=== PATIENT | male | born 1965 | race Caucasian/White ===

== ENCOUNTER → 2021-05-30 10:50 | Outpatient (CLI) | payer OTHER, SELFPAY ==
[2021-05-30 11:14] LABS: Basophils # 0.1 K/mm3 (0-0.2); Eosinophils # 0.3 K/mm3 (0.0-0.4); Eosinophils % 4.6 % (0.1-12.0); Hematocrit 50.3 % (42.0-52.0); Hemoglobin 16.3 g/dL (14.1-18.0); Lymphocytes # 1.6 K/mm3 (0.7-4.5); Lymphocytes % 26.5 % (10-50); Mean Corpuscular HGB Conc 32.5 g/dL (31.8-35.4); Mean Corpuscular Hemoglobin 31.2 pg (27.0-31.2); Mean Corpuscular Volume 96.1 fl (80-94); Monocytes # 0.3 K/mm3 (0.1-1.0); Monocytes % 5.4 % (1.7-9.3); Neutrophils # 3.7 K/mm3 (1.8-7.8); Neutrophils % 61.4 % (37.0-80.0); Platelet Count 84 K/mm3 (142-424); Red Blood Count 5.24 M/mm3 (4.60-6.20); Red Cell Distribution Width 13.9 % (11.5-17.5); White Blood Count 6.1 K/mm3 (4.8-10.8)
[2021-05-30 13:06] LABS: Chloride 107 mmol/L (98-107); Sodium 138 mmol/L (136-145)
[2021-05-30 13:09] LABS: Alanine Aminotransferase 43 U/L (12-78); Albumin Level 3.9 g/dl (3.5-5.0); Albumin/Globulin Ratio 1.1 (1.1-1.8); Alkaline Phosphatase 117 U/L (38-126); Aspartate Amino Transferase 48 U/L (17-59); Bilirubin,Total 1.1 mg/dl (0.2-1.3); Blood Urea Nitrogen 10 mg/dl (9-20); Carbon Dioxide 27 mmol/L (22.0-30.0); Estimated Glomerular Filt Rate 140 ml/min (>60); GFR (African American) 170 ML/MIN (>60); Globulin 3.5 g/dL (1.3-3.2); Total Protein,Serum 7.4 g/dl (6.3-8.2)
[2021-05-30 13:10] LABS: Anion Gap 8.3 mEq/L (5-15); Potassium 4.3 mmoL/L (3.5-5.1)
[2021-05-30 13:13] LABS: Calcium 9.1 mg/dl (8.4-10.2); Glucose 281 mg/dl (74-100)
== END ==
PROVIDERS: Visit Provider Internal Medicine Medical Oncology
DX: D69.6 Thrombocytopenia, unspecified (principal)
CPT/HCPCS: 36415; 80053; 85025

== ENCOUNTER → 2021-06-13 08:47 | Outpatient (CLI) | payer OTHER, SELFPAY ==
--- NOTE | 2021-06-13 09:00 | CT_ITS ---
FINAL REPORT CLINICAL HISTORY: THROMBOCYTOPENIA FINDINGS: Axial CT images of the chest were obtained with contrast. Coronal reformatted images were also obtained. This study was performed with techniques to keep radiation doses as low as reasonably achievable, (ALARA). Individualized dose reduction techniques using automated exposure control or adjustment of mA and/or KV according to the patient's size were employed. There are severe coronary artery calcifications. There is no evidence of mediastinal or hilar mass or adenopathy.No axillary mass or adenopathy is identified. On lung window images, there is moderate emphysema. There is mild scarring. There is a 6 mm nodule in the right major fissure which may represent an intra fissural lymph node. There is scarring in the lingula.. No localized pulmonary inflammatory process is identified. Limited images of the upper abdomen reveal no mass or localized inflammatory process. IMPRESSION: 6 mm nodule the right major fissure which may represent intra fissural lymph node. Severe coronary artery calcifications. Reviewed, Interpreted and Dictated by Fidel Bazan III, MD Transcribed by Ligia Phelan Authenticated by Fidel Bazan III, MD on 06/13/2021 11:15:21 AM [facility]
--- NOTE | 2021-06-13 09:00 | CT_ITS ---
FINAL REPORT CLINICAL HISTORY: THROMBOCYTOPENIA FINDINGS: CT OF THE ABDOMEN AND PELVIS WITH CONTRAST Axial CT images of the abdomen and pelvis were obtained after the administration of oral and iv contrast. Coronal reformatted images were also obtained and reviewed.This study was performed with techniques to keep radiation doses as low as reasonably achievable (ALARA). Individualized dose reduction techniques using automated exposure control or adjustment of mA and/or kV according to the patient's size were employed. Abdomen: The lung bases are clear. The heart is normal in size. The liver has a lobular contour which likely represents cirrhosis. There is a 10 mm mass in the medial segment of the left hepatic lobe which is nonspecific and may represent a cyst. There is also a probable small cyst in the right liver dome. The gallbladder is present. There is no biliary ductal dilatation. The spleen is enlarged measuring 16 cm in length. No adrenal mass is present. The pancreas has an unremarkable appearance. There are several bilateral renal cysts with the largest on the right measuring 2.4 cm. There are 2 left nonobstructing renal stones measuring up to 5 mm. The aorta is normal in caliber. There are multiple portal and portocaval lymph nodes with the largest portocaval lymph node measuring 3.8 cm transverse which may be reactive. Pelvis: The appendix is normal. The urinary bladder is unremarkable. No inflammatory process is seen. There is no evidence of mass or adenopathy. There is no evidence of bowel obstruction. IMPRESSION: Findings are consistent with cirrhosis and portal hypertension. Portal and portocaval adenopathy. Nonobstructing left renal stones. Reviewed, Interpreted and Dictated by Fidel Bazan III, MD Transcribed by Ligia Phelan Authenticated by Fidel Bazan III, MD on 06/13/2021 11:27:[address] [facility]
== END ==
PROVIDERS: PCP Family Medicine; Visit Provider Internal Medicine Medical Oncology
DX: D69.6 Thrombocytopenia, unspecified (principal)
CPT/HCPCS: 71260; 74177; Q9967

== ENCOUNTER → 2022-03-11 13:07 | Outpatient (CLI) | payer OTHER, SELFPAY ==
[2022-03-11 20:23] LABS: Basophils # 0.1 K/mm3 (0-0.2); Basophils % 1.3 % (0.1-2.0); Eosinophils # 0.3 K/mm3 (0.0-0.4); Eosinophils % 4.3 % (0.1-12.0); Hematocrit 48.2 % (42.0-52.0); Hemoglobin 15.8 g/dL (14.1-18.0); Lymphocytes # 1.9 K/mm3 (0.7-4.5); Lymphocytes % 25.8 % (10-50); Mean Corpuscular HGB Conc 32.8 g/dL (31.8-35.4); Mean Corpuscular Hemoglobin 30.6 pg (27.0-31.2); Mean Corpuscular Volume 93.4 fl (80-94); Mean Platelet Volume 11.7 fl (7.4-10.4); Monocytes # 0.4 K/mm3 (0.1-1.0); Monocytes % 5.8 % (1.7-9.3); Neutrophils # 4.5 K/mm3 (1.8-7.8); Neutrophils % 62.8 % (37.0-80.0); Platelet Count 96 K/mm3 (142-424); Red Blood Count 5.16 M/mm3 (4.60-6.20); Red Cell Distribution Width 14.4 % (11.5-17.5); White Blood Count 7.2 K/mm3 (4.8-10.8)
[2022-03-11 21:14] LABS: Alanine Aminotransferase 31 U/L (12-78); Albumin Level 3.7 g/dl (3.5-5.0); Albumin/Globulin Ratio 1.2 (1.1-1.8); Alkaline Phosphatase 140 U/L (38-126); Anion Gap 16.3 mEq/L (5-15); Aspartate Amino Transferase 38 U/L (17-59); Bilirubin,Total 0.7 mg/dl (0.2-1.3); Blood Urea Nitrogen 17 mg/dl (9-20); Calcium 9.1 mg/dl (8.4-10.2); Carbon Dioxide 25 mmol/L (22.0-30.0); Chloride 104 mmol/L (98-107); Estimated Glomerular Filt Rate 140 ml/min (>60); GFR (African American) 169 ML/MIN (>60); Globulin 3.2 g/dL (1.3-3.2); Glucose 83 mg/dl (74-100); Potassium 4.3 mmoL/L (3.5-5.1); Sodium 141 mmol/L (136-145); Total Protein,Serum 6.9 g/dl (6.3-8.2)
[2022-03-11 21:41] LABS: Prostate Specific Ag Screen 0.9 ng/ml (0.0-4.0); Thyroid Stimulating Hormone 1.92 uIU/mL (0.465-4.68)
== END ==
PROVIDERS: PCP Nurse Practitioner; Visit Provider Nurse Practitioner
DX: R35.0 Frequency of micturition (principal); R31.9 Hematuria, unspecified; Z12.5 Encounter for screening for malignant neoplasm of prostate
CPT/HCPCS: 80053; 84443; 85025; 87086; G0103

== ENCOUNTER → 2022-04-14 15:26 | Outpatient (CLI) | payer OTHER, SELFPAY ==
[2022-04-14 19:48] LABS: Basophils # 0.1 K/mm3 (0-0.2); Basophils % 1.5 % (0.1-2.0); Eosinophils # 0.2 K/mm3 (0.0-0.4); Hematocrit 45.5 % (42.0-52.0); Lymphocytes # 1.3 K/mm3 (0.7-4.5); Lymphocytes % 21.9 % (10-50); Mean Corpuscular HGB Conc 33.1 g/dL (31.8-35.4); Mean Corpuscular Hemoglobin 30.1 pg (27.0-31.2); Mean Platelet Volume 11.2 fl (7.4-10.4); Monocytes # 0.3 K/mm3 (0.1-1.0); Monocytes % 5.2 % (1.7-9.3); Neutrophils # 4.2 K/mm3 (1.8-7.8); Neutrophils % 68.4 % (37.0-80.0); Platelet Count 78 K/mm3 (142-424); Red Cell Distribution Width 14.1 % (11.5-17.5); White Blood Count 6.1 K/mm3 (4.8-10.8)
[2022-04-14 19:51] LABS: Blood Urea Nitrogen 12 mg/dl (9-20); Calcium 9.3 mg/dl (8.4-10.2); Carbon Dioxide 29 mmol/L (22.0-30.0); Chloride 102 mmol/L (98-107); Estimated Glomerular Filt Rate 100 ml/min (>60); GFR (African American) 121 ML/MIN (>60); Glucose 160 mg/dl (74-100); Sodium 141 mmol/L (136-145)
== END ==
PROVIDERS: PCP Nurse Practitioner; Visit Provider Nurse Practitioner
DX: Z01.818 Encounter for other preprocedural examination (principal)
CPT/HCPCS: 80048; 85025

== ENCOUNTER 2024-03-14 08:48 | Emergency (ER) | payer BC, SELFPAY ==
[2024-03-14 08:53] VITALS: BP 156/96; PULSE 54; O2SAT 96
[2024-03-14 09:02] VITALS: BP 156/96; PULSE 77; RESP 14; TEMP 37; O2SAT 96; BMI 31.2
[2024-03-14 09:15] VITALS: BP 134/80; PULSE 61; O2SAT 98
--- NOTE | 2024-03-14 09:27 | PC.NURSE ---
DR NEWMAN AT BEDSIDE
[2024-03-14 09:30] VITALS: BP 144/87; PULSE 54; O2SAT 96
--- NOTE | 2024-03-14 09:32 | XR_ITS ---
PROCEDURE INFORMATION: Exam: XR Right Hip Exam date and time: 03/14/2024 9:42 AM Age: 58 years old Clinical indication: Hip pain; Right hip; Additional info: Right hip/pelvis pain TECHNIQUE: Imaging protocol: Radiologic exam of the right hip. Views: 2 or 3 views hip with pelvis when performed. COMPARISON: CT ABDOMEN PELVIS W CON 06/13/2021 9:23 AM FINDINGS: Bones/joints: No acute fracture or malalignment. No worrisome lytic or blastic lesion. No cortical erosion or periosteal reaction. Mild right hip joint space narrowing and moderate marginal osteophyte formation. Soft tissues: Normal. IMPRESSION: 1. No acute findings. 2. Moderate right hip osteoarthritis.
--- NOTE | 2024-03-14 09:33 | HMH.EDGENADL ---
Discharge Plan Disposition Patient Disposition: Home, Self-Care Prescriptions Prescriptions: New lidocaine 4 % adhesive patch,medicated 1 patch topical DAILY Qty: 5 0RF Rx Instructions: may leave on for up to 12 hrs cyclobenzaprine 10 mg tablet 10 mg PO TID PRN (Reason: muscle spasm) 5 Days Qty: 15 0RF No Action amlodipine 5 mg tablet 5 mg PO DAILY sildenafil 100 mg tablet 100 mg PO DAILY ezetimibe 10 mg tablet 10 mg PO DAILY lisinopril 20 mg tablet 20 mg PO DAILY cholecalciferol (vitamin D3) 50 mcg (2,000 unit) capsule 50 mcg PO DAILY meloxicam 15 mg tablet 15 mg PO DAILY Patient Comments: TAKE 1 TABLET BY MOUTH EVERY DAY Referrals Follow up/Referrals: Jessenia Brandt APRN [Primary Care Provider] - See instructions Activity Restrictions/Add. Instructions Additional Instructions/Restrictions: No evidence of any orthopedic or neurovascular emergency today. Return with any significant or different symptoms. Otherwise follow the primary care doctor. I would recommend that you take Tylenol in addition to the muscle relaxer and topical lidocaine patches. Return with any paralysis high fevers or other concerns. Clinical Impressions Clinical Impression: Sacroiliac inflammation Print Language Print Language: [place] Discharge ED Provider: Denny Pratt General Adult HPI General Chief complaint: PAIN Stated complaint: Pain lower back/in R hip, cant walk Time Seen by Provider: 03/14/24 09:24 Mode of Arrival: Wheelchair Source of Information: Patient Limitations: No Limitations Description of Symptoms (Recalled from ER Triage Doc. by RN): pt c/o severe R hip pain that is sharp and 12/10. pt states it started 2d as lower back pain. pt denies injury. pt states this has happened before but never this severe and it normally subsides within a few days. pt reports the pain is worse when bearing weight. History of Present Illness HPI narrative: Patient is a 58-year-old presenting today with right hip pain. He describes it being localized to the lateral aspect of his sacroiliac region and some in the lateral aspect of his hip as well. He has full range of motion but difficulty with bearing weight. He was able to walk today but with difficulty. He has a history of cirrhosis from unknown causes. He denies any other symptoms which would include bowel or bladder incontinence saddle anesthesia lower extremity paralysis fevers etc. Related Data Home Medications ?Medication ?Instructions ?Recorded ?Confirmed amlodipine 5 mg tablet 5 mg PO DAILY 05/30/21 05/07/22 cholecalciferol (vitamin D3) 50 50 mcg PO DAILY 05/30/21 05/07/22 mcg (2,000 unit) capsule ezetimibe 10 mg tablet 10 mg PO DAILY 05/30/21 05/07/22 lisinopril 20 mg tablet 20 mg PO DAILY 05/30/21 05/07/22 sildenafil 100 mg tablet 100 mg PO DAILY 05/30/21 05/07/22 meloxicam 15 mg tablet 15 mg PO DAILY 04/14/22 05/07/22 Previous Rx's ?Medication ?Instructions ?Recorded cyclobenzaprine 10 mg tablet 10 mg PO TID PRN muscle spasm 5 03/14/24 days #15 tabs lidocaine 4 % topical patch 1 patch topical DAILY #5 ea 03/14/24 Allergies Allergy/AdvReac Type Severity Reaction Status Date / Time No Known Allergies Allergy Verified 03/14/24 09:08 [facility] Disclaimer: The information contained in this section may have been updated after the patient was seen, as this information can be updated by other users. Medical History ASCVD (arteriosclerotic cardiovascular disease) Cirrhosis Heart attack Hyperlipemia Hypertension Portal hypertension Thrombocytopenia Surgical History History of extraction of renal calculus History of heart surgery Family History Other Diabetes Heart attack Hypertension Social History Smoking Status: Current every day smoker alcohol intake: current alcohol intake frequency: a few times a month current occupational status: employed Travel in the last 8 weeks: None Other Medical History Have you received the Pneumonia Vaccine: Yes ROS Obtained: Yes All systems reviewed & no additional complaints except as documented Physical Exam General General appearance: alert and in no apparent distress Respiratory Respiratory exam: Present normal lung sounds bilaterally Cardiovascular Cardiovascular exam: Present regular rate and normal rhythm Back Exam Back 1 view image: 1. Tender to palpation normal motor neurovascular exam distal to this region specifically normal internal and external rotation flexion extension of the hip Neurological Exam Neurological exam: Present alert and oriented X3 Medical Decision Making Medical Records Screening: Per USPSTF and CDC recommendations, given the prevalence of disease in our region, it is our hospital?s policy to screen for HIV and viral Hepatitis for all patients aged 18 and over and those with ongoing risk factors. Bob Inquiry Pt receiving controlled substance: No Vital Signs: 03/14/24 08:53 03/14/24 09:02 03/14/24 09:15 Temperature 98.6 F Temperature Source Oral Pulse Rate 54 L 61 Pulse Rate [Left] 77 Respiratory Rate 14 Blood Pressure 156/96 H 134/80 Blood Pressure [Right Arm] 156/96 H Blood Pressure Mean 106 98 Blood Pressure Mean [Right Arm] 116 Blood Pressure Source [Right Arm] Automatic Cuff Blood Pressure Position [Right Arm] Sitting 02 Sat by Pulse Oximetry 96 96 98 Oxygen Delivery Method Room Air Room Air Room Air 03/14/24 09:30 03/14/24 09:45 Temperature Temperature Source Pulse Rate 54 L 61 Pulse Rate [Left] Respiratory Rate Blood Pressure 144/87 H 125/75 Blood Pressure [Right Arm] Blood Pressure Mean 107 101 Blood Pressure Mean [Right Arm] Blood Pressure Source [Right Arm] Blood Pressure Position [Right Arm] 02 Sat by Pulse Oximetry 96 98 Oxygen Delivery Method Room Air Room Air Orders (Tests/Meds): ED MEDICATIONS Discontinued Medications Generic Name Dose Route Start Last Admin Trade Name Dlq PRN Reason Stop Dose Admin Dexamethasone Sodium Phosphate 10 mg 03/14/24 09:31 03/14/24 09:51 Dexamethasone 4mg/Ml 1ml Vial IM 03/14/24 09:32 10 mg ONCE ONE Administration Ketorolac Tromethamine 30 mg 03/14/24 09:31 03/14/24 09:51 Ketorolac 30mg/Ml Vial IM 03/14/24 09:32 30 mg ONCE ONE Administration Lidocaine 1 each 03/14/24 09:31 03/14/24 09:52 Lidocaine 5% Transdermal Patch TP 03/14/24 09:32 1 each ONCE ONE Administration ORDERS Category Date Time Status Hip XR right minimum 2 views [XR hip RT 2-3V w/pelvis] Exams 03/14/24 09:32 Taken Stat Medical Decision Narrative: 58-year-old above history and physical symptoms with localized tenderness over the sacroiliac region. He has no symptoms consistent with sciatica no significant radiation. Majority of his symptoms are in the small localized region. No midline back pain noted history or physical signs concerning for central compression such as would be associated with cauda equina etc. He has no signs or symptoms of a septic joint. Will get an x-ray of his hip and pelvis but this seems to be primarily associate with the sacroiliac region on his hip itself. I had an extensive discussion with him regarding medications and the risk associate with those. He does have cirrhosis and does have some thrombocytopenia and while theoretically NSAIDs could increase his risk of bleeding I had this discussion with him not something I would want him to be on long-term but I do think at 21 things would make him feel better right now. Also will give him a dose of steroids. He understands the risk associated with taking a dose of NSAIDs in the setting of cirrhosis and thrombocytopenia and we will give him a low-dose of IM medication. Also will place a lidocaine patch. He will be discharged shortly. X-ray of the pelvis and the right hip performed which I personally interpreted which showed no acute bony emergency such as fracture or dislocation the right hip itself shows no advanced degenerative changes in cartilaginous surfaces are well-maintained. This adds to the likelihood that his hip is on the certainly not the cause of his symptoms today. He has no clinical signs or symptoms of septic joint and did not look into this further. Supportive care discussed he was given medications in the ED with some improvement he was sent home with a prescription of Flexeril lidocaine patches and advised to take Tylenol. Critical Care Critical Care Time Critical Care Time: No
[2024-03-14 09:45] VITALS: BP 125/75; PULSE 61; O2SAT 98
[2024-03-14] MEDS: DEXAMETHASONE 4MG/ML 1ML VIAL 10 MG IM (09:51)
[2024-03-14] MEDS: KETOROLAC 30MG/ML VIAL 30 MG IM (09:51)
[2024-03-14] MEDS: LIDOCAINE 5% TRANSDERMAL PATCH 1 EACH TP (09:52)
[2024-03-14 10:08] VITALS: BP 125/75; PULSE 75; RESP 16; TEMP 37
== END 2024-03-14 10:17 | disposition home or self-care (01) ==
PROVIDERS: Emergency Provider Student in an Organized Health Care Education/Training Program; PCP Nurse Practitioner
DX: M46.1 Sacroiliitis, not elsewhere classified (principal); M54.50 Low back pain, unspecified; M25.551 Pain in right hip
CPT/HCPCS: 73502; 96372; 99283; J1100; J1885

== ENCOUNTER 2024-06-24 19:28 | Emergency (ER) | payer BC, SELFPAY ==
[2024-06-24] VITALS (7 sets, daily range): BP systolic 120–150; BP diastolic 84–99; PULSE 64–74; RESP 12–18; TEMP 36.8–37.2; O2SAT 95–98; BMI 30.1
--- NOTE | 2024-06-24 20:04 | ECG_ITS ---
APPROVED REPORT Exam: Resting ECG HR:64 bpm ECG Measurements Heart Rate 64 AXES ME 173 P -6 QRSd 86 QRS 57 QT 383 T 79 QTc 392 Conclusion SINUS RHYTHM NORMAL ECG Electronically signed by : LAURA DUTTON, 06/25/2024 00:15:57
[2024-06-24 20:05] LABS: Basophils % 0.4 % (0.1-2.0); Eosinophils # 0.1 K/mm3 (0.0-0.4); Eosinophils % 0.8 % (0.1-12.0); Hematocrit 43.1 % (42.0-52.0); Lymphocytes % 12.8 % (10-50); Mean Corpuscular HGB Conc 34.8 g/dL (31.8-35.4); Mean Corpuscular Hemoglobin 29.6 pg (27.0-31.2); Monocytes # 0.4 K/mm3 (0.1-1.0); Monocytes % 5.5 % (1.7-9.3); Neutrophils # 6.2 K/mm3 (1.8-7.8); Neutrophils % 80.1 % (37.0-80.0); Red Blood Count 5.07 M/mm3 (4.60-6.20); Red Cell Distribution Width 12.6 % (11.5-17.5); White Blood Count 7.7 K/mm3 (4.8-10.8)
[2024-06-24 20:09] LABS: Lactate Venous 1.3 mmol/L (0.4-2.0); VBG HCO3 19.4 mmol/L (23-30); VBG Oxygen Saturation 86.3 % (50-70); VBG PCO2 34.4 mmol/L (35-51); VBG PH 7.37 mmol/L (7.31-7.41); VBG PO2 50.9 mmol/L (28-40); VBG Total CO2 20.4 mmol/L (23-27)
--- NOTE | 2024-06-24 20:09 | ED_ITS ---
Discharge Plan Disposition Patient Disposition: Home, Self-Care Condition: Good Prescriptions Prescriptions: No Action amlodipine 5 mg tablet 5 mg PO DAILY sildenafil 100 mg tablet 100 mg PO DAILY ezetimibe 10 mg tablet 10 mg PO DAILY cholecalciferol (vitamin D3) 50 mcg (2,000 unit) capsule 50 mcg PO DAILY spironolactone 50 mg tablet 50 mg PO DAILY Patient Comments: TAKE 1 TABLET BY MOUTH EVERY DAY FOR 30 DAYS furosemide 20 mg tablet 20 mg PO DAILY Patient Comments: TAKE 1 TABLET BY MOUTH EVERY DAY FOR 30 DAYS methylprednisolone 4 mg tablets,dose pack See Rx Instructions PO PER PKG DIR Qty: 21 0RF Rx Instructions: PO PER PKG DIR methocarbamol 750 mg tablet See Rx Instructions .ROUTE .COMPLEX Qty: 120 0RF Dose Instruction: TAKE 1 TABLET BY MOUTH FOUR TIMES A DAY Rx Instructions: TAKE 1 TABLET BY MOUTH FOUR TIMES A DAY lidocaine 4 % adhesive patch,medicated 1 patch topical DAILY Qty: 5 0RF Rx Instructions: may leave on for up to 12 hrs Referrals Follow up/Referrals: Jessenia Brandt APRN [Primary Care Provider] - See instructions Activity Restrictions/Add. Instructions Additional Instructions/Restrictions: You were evaluated in the emergency department today and diagnosed with diabetes. Your hemoglobin A1c is 11.8. Your blood glucose here is 442. You also have elevation in your liver enzymes. As we discussed, I recommend stopping taking your ashwagandha. This can be harmful to the liver. Please follow-up very closely with your primary care provider tomorrow morning as scheduled for further evaluation and management of your blood glucose, as we did not start you on a long-term medication today. Modify your diet to reduce sugars and carbohydrates. Return to the emergency department for new or worsening symptoms. Clinical Impressions Clinical Impression: Diabetes Instructions Patient Instructions: DI for Diabetes Type 2 Print Language Print Language: Slovenian Discharge ED Provider: Alberta Dumas General Adult HPI General Chief complaint: Recheck/Abnormal Lab/Rx Stated complaint: Elevated sugar 399 Time Seen by Provider: 06/24/24 19:39 Mode of Arrival: Ambulatory Source of Information: Patient Limitations: No Limitations Description of Symptoms (Recalled from ER Triage Doc. by RN): pt to ED with c/o high blood sugar. Pt reports he has had a feeling for a while that his sugar was high, and decided to check it last night. Pt reports he hasn't been eating but his FS has been 300s-500s since last night. Pt states he has not been dx with diabetes. Pt c/o dizziness History of Present Illness HPI narrative: This patient is a 58-year-old male with a history of cirrhosis, CAD with prior ME, portal hypertension, hyperlipidemia, and hypertension presenting to the emergency department for evaluation with concern for high blood sugar. Patient states that he is not felt well for a very long time, since a heart attack back in 2013. He notes that for the last months, he has had high blood sugar readings, increased thirst, increased urination. He has follow-up with the PCP tomorrow but his blood sugars been in the 300s to 500s and he feels much worse. He has not been eating. He feels lightheaded, especially when he gets up and starts doing a lot of things. No fevers, chest pain, abdominal pain, or other concerns. He denies any history of high blood sugar or diagnosis of diabetes in the past. Related Data Home Medications ?Medication ?Instructions ?Recorded ?Confirmed amlodipine 5 mg tablet 5 mg PO DAILY 05/30/21 03/16/24 cholecalciferol (vitamin D3) 50 50 mcg PO DAILY 05/30/21 03/16/24 mcg (2,000 unit) capsule ezetimibe 10 mg tablet 10 mg PO DAILY 05/30/21 03/16/24 sildenafil 100 mg tablet 100 mg PO DAILY 05/30/21 03/16/24 furosemide 20 mg tablet 20 mg PO DAILY 03/16/24 03/16/24 spironolactone 50 mg tablet 50 mg PO DAILY 03/16/24 03/16/24 Previous Rx's ?Medication ?Instructions ?Recorded lidocaine 4 % topical patch 1 patch topical DAILY #5 ea 03/14/24 methylprednisolone 4 mg tablets in See Rx Instructions PO PER PKG DIR 03/16/24 a dose pack #21 tabs methocarbamol 750 mg tablet See Rx Instructions .Route 04/11/24 .COMPLEX #120 tabs Allergies Allergy/AdvReac Type Severity Reaction Status Date / Time No Known Allergies Allergy Verified 03/16/24 11:08 [facility] Disclaimer: The information contained in this section may have been updated after the patient was seen, as this information can be updated by other users. Medical History Acute right-sided low back pain with sciatica Thrombocytopenia Portal hypertension ASCVD (arteriosclerotic cardiovascular disease) Cirrhosis Hyperlipemia Hypertension Heart attack Surgical History History of extraction of renal calculus History of heart surgery Family History Other Diabetes Heart attack Hypertension Social History Smoking Status: Never smoker alcohol intake: current alcohol intake frequency: a few times a month current occupational status: employed Travel in the last 8 weeks: None Have you lived/traveled outside US in past 30 days?: No Contact w/someone who lives/traveled outside US past 30 days?: No Exposure to someone with infectious disease in past 14 days?: No Do you have a fever (greater than 100.4 F or 38 C)?: No Have you tested positive for COVID-19: No Exposed to someone with COVID-19 in past 14 days?: No Do you have a sore throat?: No Do you have a cough?: No Do you have any weakness?: No Do you have any diarrhea?: No Are you experiencing any unusual bleeding?: No Do you have any muscle aches/pain?: No Do you have any abdominal pain?: No Are you experiencing loss of taste or smell?: No Other Medical History Have you received the Pneumonia Vaccine: Yes ROS Obtained: Yes All systems reviewed & no additional complaints except as documented Physical Exam General General appearance: alert and in no apparent distress Head Head exam: atraumatic and normocephalic Eye Eye exam: Present normal appearance, PERRL and EOMI ENT ENT exam: Present normal exam, normal oropharynx, mucous membranes moist and normal external ear exam Neck Neck exam: Present normal inspection, full ROM and trachea midline; Absent tenderness Chest Chest inspection: Present normal inspection and symmetric chest wall rise; Absent tenderness Respiratory Respiratory exam: Present normal lung sounds bilaterally; Absent respiratory distress, wheezes, stridor or accessory muscle use Cardiovascular Cardiovascular exam: Present regular rate and normal rhythm Abdominal Exam Abdominal exam: Present soft; Absent distention, tenderness or guarding Extremities Exam Extremities exam: Present normal inspection, full ROM and normal capillary refill; Absent tenderness or edema Back Exam Back exam: Present normal inspection and full ROM; Absent tenderness Neurological Exam Neurological exam: Present alert, oriented X3, CN II-XII intact and normal gait; Absent motor sensory deficit Psychiatric Psychiatric exam: Present normal affect and normal mood Skin Skin exam: Present warm and dry Medical Decision Making Medical Records Medical records reviewed: Yes I reviewed the patient's medical records. Screening: Per USPSTF and CDC recommendations, given the prevalence of disease in our region, it is our hospital?s policy to screen for HIV and viral Hepatitis for all patients aged 18 and over and those with ongoing risk factors. Bob Inquiry Pt receiving controlled substance: No Vital Signs: 06/24/24 19:30 06/24/24 20:00 06/24/24 20:30 Temperature 98.2 F Temperature Source Oral Pulse Rate 64 66 Pulse Rate [Left Radial] 74 Respiratory Rate 18 16 Blood Pressure 128/86 120/90 Blood Pressure [Right Arm] 141/99 H Blood Pressure Mean [Right Arm] 113 Blood Pressure Source [Right Arm] Automatic Cuff Blood Pressure Position Blood Pressure Position [Right Arm] Sitting 02 Sat by Pulse Oximetry 96 96 97 Oxygen Delivery Method Room Air 06/24/24 21:15 06/24/24 21:52 06/24/24 22:00 Temperature Temperature Source Pulse Rate 64 64 66 Pulse Rate [Left Radial] Respiratory Rate 12 Blood Pressure 148/88 H 150/84 H 150/95 H Blood Pressure [Right Arm] Blood Pressure Mean [Right Arm] Blood Pressure Source [Right Arm] Blood Pressure Position Blood Pressure Position [Right Arm] 02 Sat by Pulse Oximetry 96 96 95 Oxygen Delivery Method 06/24/24 22:09 Temperature 98.9 F Temperature Source Oral Pulse Rate 66 Pulse Rate [Left Radial] Respiratory Rate 16 Blood Pressure 150/95 H Blood Pressure [Right Arm] Blood Pressure Mean [Right Arm] Blood Pressure Source [Right Arm] Blood Pressure Position Supine Blood Pressure Position [Right Arm] 02 Sat by Pulse Oximetry Oxygen Delivery Method Room Air Lab Data Lab results reviewed: Yes I reviewed the patient's lab results. Lab Results 06/24/24 19:42: WBC 7.7, RBC 5.07, Hgb 15.0, Hct 43.1, MCV 85.0, MCH 29.6, MCHC 34.8, RDW 12.6, Plt Count 50 L, MPV 12.0 H, Neut % (Auto) 80.1 H, Lymph % (Auto) 12.8, [place] % (Auto) 5.5, Eos % (Auto) 0.8, Baso % (Auto) 0.4, Neut # (Auto) 6.2, Lymph # (Auto) 1.0, [place] # (Auto) 0.4, Eos # (Auto) 0.1, Baso # (Auto) 0.0, PT 10.4, INR 0.94, Sodium 128 L, Potassium 5.0, Chloride 100, Carbon Dioxide 20 L, Anion Gap 13.0, BUN 30 H, Creatinine 1.00, Estimated Creat Clear 110, Estimated GFR 77, Est GFR ( Amer) 93, Glucose 442 H*, Hemoglobin A1c 11.8 H, Calcium 9.2, Phosphorus 3.5, Magnesium 1.8, Total Bilirubin 1.1, AST 81 H, ALT 124 H, Alkaline Phosphatase 142 H, Troponin I < 0.01, Total Protein 7.1, Albumin 4.1, Globulin 3.0, Albumin/Globulin Ratio 1.4, Acetone Level None detected, HCV Ab JOAO w/Rflx PCR Qn Negative, HIV Ag/Ab Combo Qual Negative 06/24/24 19:57: VBG pH 7.37, VBG pCO2 34.4 L, VBG pO2 50.9 H, VBG HCO3 19.4 L, V BG Total CO2 20.4 L, VBG O2 Saturation 86.3 H, VBG Base Excess -6.0 L, VBG Lactic Acid 1.3 06/24/24 20:20: Urine Color Yellow, Urine Appearance Clear, Urine pH 6.0, Ur Specific [place] 1.010, Urine Protein Negative, Urine Glucose (UA) 3+, Urine Ketones Negative, Urine Blood Trace-i, Urine Nitrate Negative, Urine Bilirubin Negative, Urine Urobilinogen 0.2, Ur Leukocyte Esterase Negative, Urine RBC 3-5, Urine WBC None, Ur Squamous Epith Cells Occasional, Urine Bacteria None 06/24/24 19:42 06/24/24 19:42 Orders (Tests/Meds): ED MEDICATIONS Discontinued Medications Generic Name Dose Route Start Last Admin Trade Name Freq PRN Reason Stop Dose Admin Lactated Ringer's 1,000 mls @ 999 mls/hr 06/24/24 20:34 06/24/24 20:39 Lactated Ringer's 1000 Ml Bag IV 06/24/24 21:34 999 mls/hr .Q1H1M ONE Administration Insulin Human Lispro 5 unit 06/24/24 20:39 06/24/24 20:56 Humalog 100 Units/Ml 10ml Vial (Ssi) SUBCUT 06/24/24 20:40 5 unit ONCE ONE Administration ORDERS Category Date Time Status Acetone, Serum (Rapid) Stat Lab 06/24/24 19:42 Completed Complete Blood Count Auto Diff Stat Lab 06/24/24 19:42 Completed Comprehensive Metabolic Panel Stat Lab 06/24/24 19:42 Completed HIV Combo Stat Lab 06/24/24 19:42 Completed Hemoglobin A1C Stat Lab 06/24/24 19:42 Completed Hepatitis C Ab Qual. W/ RFX Stat Lab 06/24/24 19:42 Completed INR [Prothrombin Time INR] Stat Lab 06/24/24 19:42 Completed MAG [Magnesium] Stat Lab 06/24/24 19:42 Completed PHOS [Phosphorous] Stat Lab 06/24/24 19:42 Completed Trop I [Troponin I] Stat Lab 06/24/24 19:42 Completed UA [Urinalysis and Microscopic] Stat Lab 06/24/24 20:20 Completed VBG [Venous Blood Gas] Stat RT 06/24/24 19:57 Completed ECG Data Tracing #1: I reviewed this ECG and interpreted as documented below: Normal sinus rhythm with a ventricular of [address] changes concerning for STEMI. Normal axis and intervals. ECG initial impression date: 06/24/24 ECG initial impression time: 20:06 Medical Decision Narrative: In summary, this patient is a 58-year-old male presenting to the Emergency Department for evaluation of high blood sugar, polydipsia, polyuria. Differential diagnoses considered include but are not limited to diabetes, DKA, HHS. Ruling out the most morbid conditions drove assessment. It should be noted patient's history includes obesity, cirrhosis which are not at goal therapy. This complicates all aspects of care by increasing patient's risk for morbidity. On exam, the patient is sitting upright in no acute distress. Vitals are reassuring on cardiac telemetry. Workup included CBC, CMP, VBG, acetone, A1c, urinalysis. EKG was obtained which is reassuring. Patient has hyperglycemia with elevated A1c at 11.8% on lab evaluation. He also has transaminitis. He recently started taking ashwagandha for health supplement, I advised he stop taking this and follow-up with his primary care provider as it could be potentially harmful to his liver. He has mild hyponatremia which corrects with his glucose. Mildly elevated BUN. Urine demonstrates glucosuria. Overall based on labs, no concern for DKA, HHS, or other acute complication of uncontrolled diabetes I gave the patient 5 units of subcutaneous insulin here, which he tolerated well with some improvement in his blood glucose. Also given bolus of IV fluids. I considered going ahead and starting him on metformin, however he is at risk for developing lactic acidosis given his transaminitis. He has PCP follow-up in the morning, so I feel right now he is stable for discharge with close follow-up with his PCP to decide what medication would be best for him based on his medical history. I gave him instructions for dietary changes, monitoring his blood glucose, and strict return precautions. He was discharged after all questions were answered. Critical Care Critical Care Time Critical Care Time: No
[2024-06-24 20:10] LABS: Platelet Count 50 K/mm3 (142-424)
[2024-06-24 20:11] LABS: Acetone, Serum (Rapid) None Detected (None Detect)
[2024-06-24 20:21] LABS: Alanine Aminotransferase 124 U/L (12-78); Albumin Level 4.1 g/dl (3.5-5.0); Albumin/Globulin Ratio 1.4 (1.1-1.8); Alkaline Phosphatase 142 U/L (38-126); Aspartate Amino Transferase 81 U/L (17-59); Bilirubin,Total 1.1 mg/dl (0.2-1.3); Blood Urea Nitrogen 30 mg/dl (9-20); Calcium 9.2 mg/dl (8.4-10.2); Carbon Dioxide 20 mmol/L (22.0-30.0); Chloride 100 mmol/L (98-107); Creatinine Clearance Estimated 110 mL/min (50-200); Estimated Glomerular Filt Rate 77 ml/min (>60); GFR (African American) 93 ML/MIN (>60); Magnesium 1.8 mg/dl (1.6-2.3); Phosphorous 3.5 mg/dl (2.5-4.5); Sodium 128 mmol/L (136-145); Total Protein,Serum 7.1 g/dl (6.3-8.2)
[2024-06-24 20:22] LABS: INR 0.94 (0.9-1.1); Prothrombin Time 10.4 seconds (9.2-12.1)
[2024-06-24 20:23] LABS: Glucose 442 mg/dl (74-100)
[2024-06-24 20:25] LABS: Appearance,Urine CLEAR (Clear); Bilirubin,Urine Negative (Negative); Blood, Urine TRACE-I (Negative); Color,Urine YELLOW (Yellow); Glucose,Urine (UA) 3+ (Negative); Ketones,Urine Negative (Negative); Leukocyte Esterase,Urine Negative (Negative); Microscopic, Urine URINE MICROSCOPIC (MICROSCOPIC); Nitrate,Urine Negative (Negative); Protein,Urine Negative (Negative); Urobilinogen,Urine 0.2 EU/dl (0.2)
--- NOTE | 2024-06-24 20:30 | PC.NURSE ---
rounded on pt. UA sent to lab. pt voices no needs. call light in reach
[2024-06-24 20:33] LABS: Troponin I < 0.01 ng/ml (0.00-0.034)
[2024-06-24 20:36] LABS: Hemoglobin A1C 11.8 % (4.0-6.0)
[2024-06-24 20:37] LABS: Squamous Epithelial Cell,Urine Occasional #/hpf (0-5)
[2024-06-24] MEDS: LACTATED RINGERS 1000ML 1,000 ML 999 ML IV (20:39)
[2024-06-24 20:56] LABS: HIV Combo NEGATIVE (Negative)
[2024-06-24] MEDS: humaLOG 100 UNITS/ML 10ML VIAL (SSI) 5 UNIT SUBCUT (20:56)
[2024-06-24 21:01] LABS: Hepatitis C Ab Qual. W/ RFX NEGATIVE (Negative)
--- NOTE | 2024-06-24 21:53 | PC.NURSE ---
rounded on pt at this time. pt updated on POC. Pt voices no needs. call light in reach. family at bedside.
--- NOTE | 2024-06-24 22:11 | PC.NURSE ---
IV removed. Catheter tip intact. Bleeding controlled.
== END 2024-06-24 22:12 | disposition home or self-care (01) ==
PROVIDERS: Emergency Provider Emergency Medicine; PCP Nurse Practitioner
DX: E11.65 Type 2 diabetes mellitus with hyperglycemia (principal); R42 Dizziness and giddiness; R35.0 Frequency of micturition; R63.1 Polydipsia; R63.8 Other symptoms and signs concerning food and fluid intake
CPT/HCPCS: 80053; 81001; 82009; 82803; 83036; 83735; 84100; 84484; 85025; 85610; 86803; 87389; 93005; 96360; 96361; 96372; 99284; J7120

== ENCOUNTER 2024-07-07 16:14 | Outpatient (CLI) | payer BC, SELFPAY ==
[2024-07-07 18:59] LABS: Creatinine,Urine Random 89 mg/dL (Not Estab.); Hemoglobin A1C 11.7 % (4.0-6.0); Microalbumin < 6.000 mg/L (0-16.7)
[2024-07-07 20:03] LABS: Alanine Aminotransferase 90 U/L (12-78); Albumin Level 3.7 g/dl (3.5-5.0); Albumin/Globulin Ratio 1.5 (1.1-1.8); Alkaline Phosphatase 96 U/L (38-126); Anion Gap 14.2 mEq/L (5-15); Aspartate Amino Transferase 53 U/L (17-59); Bilirubin,Total 0.7 mg/dl (0.2-1.3); Blood Urea Nitrogen 24 mg/dl (9-20); Carbon Dioxide 25 mmol/L (22.0-30.0); Chloride 101 mmol/L (98-107); Chol/HDL Ratio 2.6 (1-3.5); Cholesterol 135 mg/dl (140-200); Estimated Glomerular Filt Rate 87 ml/min (>60); GFR (African American) 105 ML/MIN (>60); Globulin 2.5 g/dL (1.3-3.2); Glucose 187 mg/dl (74-100); HDL Cholesterol 52 mg/dl (40-60); Potassium 4.2 mmoL/L (3.5-5.1); Sodium 136 mmol/L (136-145); Total Protein,Serum 6.2 g/dl (6.3-8.2); Triglycerides 201 mg/dl (30-150); VLDL Cholesterol 40 mg/dL (0-40)
[2024-07-07 20:21] LABS: Direct LDL Cholesterol 45.89 mg/dL (100-129)
[2024-07-07 20:44] LABS: Prostate Specific Ag Screen 0.4 ng/ml (0.0-4.0); Thyroid Stimulating Hormone 1.94 uIU/mL (0.465-4.68)
[2024-07-07 21:03] LABS: Vitamin B12 678 pg/mL (239-931)
== END 2024-07-07 23:59 | disposition home or self-care (01) ==
LOC: LAB.DROPOF 07-08 09:48
PROVIDERS: PCP Nurse Practitioner; Visit Provider Nurse Practitioner
DX: E11.9 Type 2 diabetes mellitus without complications (principal); I25.10 Atherosclerotic heart disease of native coronary artery without angina pectoris; K74.60 Unspecified cirrhosis of liver; Z12.5 Encounter for screening for malignant neoplasm of prostate
CPT/HCPCS: 80053; 80061; 82043; 82570; 82607; 83036; 84443; G0103

== ENCOUNTER 2024-08-01 08:45 | Outpatient (CLI) | payer BC, SELFPAY ==
[2024-08-01 20:41] LABS: Albumin Level 4.2 g/dl (3.5-5.0); Chloride 105 mmol/L (98-107); Potassium 4.6 mmoL/L (3.5-5.1); Sodium 136 mmol/L (136-145)
[2024-08-01 20:43] LABS: Blood Urea Nitrogen 17 mg/dl (9-20); Estimated Glomerular Filt Rate 100 ml/min (>60); GFR (African American) 121 ML/MIN (>60)
[2024-08-01 20:44] LABS: Alanine Aminotransferase 77 U/L (12-78); Albumin/Globulin Ratio 1.4 (1.1-1.8); Alkaline Phosphatase 93 U/L (38-126); Anion Gap 8.6 mEq/L (5-15); Aspartate Amino Transferase 60 U/L (17-59); Bilirubin,Total 0.9 mg/dl (0.2-1.3); Calcium 9.3 mg/dl (8.4-10.2); Carbon Dioxide 27 mmol/L (22.0-30.0); Globulin 2.9 g/dL (1.3-3.2); Glucose 123 mg/dl (74-100); Total Protein,Serum 7.1 g/dl (6.3-8.2)
== END 2024-08-01 23:59 | disposition home or self-care (01) ==
LOC: LAB.DROPOF 08-02 12:07
PROVIDERS: PCP Nurse Practitioner; Visit Provider Nurse Practitioner
DX: E11.9 Type 2 diabetes mellitus without complications (principal); Z79.4 Long term (current) use of insulin
CPT/HCPCS: 80053; 83036

== ENCOUNTER 2024-08-15 08:58 | Outpatient (CLI) | payer BC, SELFPAY ==
[2024-08-15 22:50] LABS: Albumin Level 4.2 g/dl (3.5-5.0); Chloride 107 mmol/L (98-107); Potassium 4.8 mmoL/L (3.5-5.1); Sodium 137 mmol/L (136-145)
[2024-08-15 22:53] LABS: Alanine Aminotransferase 53 U/L (12-78); Albumin/Globulin Ratio 1.4 (1.1-1.8); Alkaline Phosphatase 95 U/L (38-126); Anion Gap 3.8 mEq/L (5-15); Aspartate Amino Transferase 50 U/L (17-59); Bilirubin,Total 0.9 mg/dl (0.2-1.3); Blood Urea Nitrogen 17 mg/dl (9-20); Calcium 9.5 mg/dl (8.4-10.2); Carbon Dioxide 31 mmol/L (22.0-30.0); Estimated Glomerular Filt Rate 87 ml/min (>60); GFR (African American) 105 ML/MIN (>60); Globulin 3.1 g/dL (1.3-3.2); Glucose 122 mg/dl (74-100); Total Protein,Serum 7.3 g/dl (6.3-8.2)
== END 2024-08-15 23:59 | disposition home or self-care (01) ==
LOC: LAB.DROPOF 08-16 12:44
PROVIDERS: PCP Nurse Practitioner; Visit Provider Nurse Practitioner
DX: E11.9 Type 2 diabetes mellitus without complications (principal)
CPT/HCPCS: 80053

== ENCOUNTER 2024-11-14 10:32 | Outpatient (CLI) | payer BC, SELFPAY ==
[2024-11-14 18:50] LABS: Albumin Level 4.2 g/dl (3.5-5.0); Chloride 102 mmol/L (98-107); Potassium 4.6 mmoL/L (3.5-5.1); Sodium 136 mmol/L (136-145)
[2024-11-14 18:53] LABS: Alanine Aminotransferase 49 U/L (12-78); Albumin/Globulin Ratio 1.1 (1.1-1.8); Alkaline Phosphatase 78 U/L (38-126); Anion Gap 15.6 mEq/L (5-15); Aspartate Amino Transferase 57 U/L (17-59); Bilirubin,Total 0.7 mg/dl (0.2-1.3); Blood Urea Nitrogen 18 mg/dl (9-20); Calcium 9.4 mg/dl (8.4-10.2); Carbon Dioxide 23 mmol/L (22.0-30.0); Cholesterol 133 mg/dl (140-200); Estimated Glomerular Filt Rate 87 ml/min (>60); GFR (African American) 105 ML/MIN (>60); Globulin 3.7 g/dL (1.3-3.2); Glucose 109 mg/dl (74-100); Total Protein,Serum 7.9 g/dl (6.3-8.2); Triglycerides 197 mg/dl (30-150); VLDL Cholesterol 39 mg/dL (0-40)
[2024-11-14 18:54] LABS: Chol/HDL Ratio 3.1 (1-3.5); HDL Cholesterol 43 mg/dl (40-60)
[2024-11-14 19:02] LABS: Hemoglobin A1C 7.2 % (4.0-6.0)
[2024-11-14 19:05] LABS: Direct LDL Cholesterol 47.43 mg/dL (100-129)
--- OUTSIDE RECORDS SUMMARY | 2024-11-16 10:45 | XMS_ITS | Clinical Summary ---
Author Organization [facility] Address [address] [place] [address] Phone Care Team Providers Care Graining Operator Name Role Phone Rene Salinas Primary Care Provider [phone] Allergies No known active allergies Medications Cholecalciferol , Vitamin D3, 2,000 unit Oral Capsule Take by mouth daily. Active aspirin 81 mg Oral Capsule Take 81 mg by mouth daily. Active methocarbamoL (ROBAXIN) 750 mg Oral Tablet 024 Active fUROsemide (LASIX) 20 mg Oral Tablet Take 20 mg by mouth daily. for 30 days Active ezetimibe (ZETIA) 10 mg Oral TabletIndicatio ns:Pure hypercholestero lemia,ASHD (arteriosclerot ic heart disease),Essent ial hypertension TAKE 1 TABLET BY MOUTH EVERY DAY 90 Tablet 3 024 Active spironolactone (ALDACTONE) 50 mg Oral Tablet Take 1 Tablet by mouth daily. 024 Active cyclobenzaprine (FLEXERIL) 10 mg Oral Tablet TAKE 1 TABLET ORALLY THREE TIMES A DAY NEEDED FOR MUSCLE SPASM FOR 5 DAYS Active REPATHA SYRINGE 140 mg/mL SubQ SyringeIndicati ons:Pure hypercholestero lemia,Myalgia due to statin INJECT 1 ML SUBCUTANEOUSLY DIRECTED EVERY 14 DAYS. 6 Each 1 025 Active amLODIPine (NORVASC) 5 mg Oral TabletIndicatio ns:Essential hypertension,Pu re hypercholestero lemia,ASHD (arteriosclerot ic heart disease) Take 1 Tablet by mouth daily. 90 Tablet 2 025 Active sildenafiL (VIAGRA) 100 mg Oral Tablet TAKE 1 TABLET BY MOUTH EVERY DAY NEEDED FOR ERECTILE DYSFUNCTION 6 Tablet 8 025 Active sildenafiL (VIAGRA) 100 mg Oral Tablet TAKE 1 TABLET BY MOUTH EVERY DAY NEEDED FOR ERECTILE DYSFUNCTION 6 Tablet 8 024 2024 Discontinued Active Problems Problem Noted Date Diagnosed Date ASHD (arteriosclerotic heart disease) 04/20/2014 Hyperlipidemia 04/20/2014 NSTEMI (non-ST elevated myocardial infarction) 1 06/18/2013 Hypertension 04/18/2014 Tobacco abuse 04/18/2014 Encounters Date Type Department Care Team Description 11/09/2024 Refill [facility] [address] [place] [address] Travis Lopez MD Medication Refill 11/09/2024 Refill [facility] [address] [address] Travis Lopez MD Medication Refill 11/06/2024 Refill [facility] [address] [address] Travis Lopez MD Medication Refill 11/06/2024 [address]ill [facility] [address] Travis Lopez MD Medication Refill 2024 Refill [facility] [address] Travis Lopez MD Medication Refill 09/01/2024 Refill [facility] [address] Kirstie Padilla APRN Medication Refill 09/01/2024 Refill [facility] [address] [address] Travis Lopez MD Medication Refill 08/17/2024 Refill [facility] [address] [address] Travis Lopez MD Medication Refill from Last 3 Months Immunizations Immunization Administration Dates Next Due Influenza Seasonal Injectable PF 04/19/2014 Pneumococcal Polysaccharide 23 Valent 04/19/2014 Surgical History Surgery Date Site/Laterality Comments CARDIAC CATHETERIZATION 03/25/2014 THERESA to LAD and ramus, EF 55% HAND SURGERY 05/25/1997 - 05/24/1998 right hand finger reattachment COLONOSCOPY UPPER GASTROINTESTINAL ENDOSCOPY ROTATOR CUFF REPAIR 05/28/2022 Shoulder/Left LEFT SHOULDER ARTHROSCOPY, ROTATOR CUFF REPAIR, ACROMIOCLAVICULAR DEBRIDEMENT, BICEPS TENODESIS, SUBACROMIAL DECOMPRESSION; Surgeon: Faisal Dickinson MD; Location: [facility]; Service: Orthopedics Medical devices from this surgery are in the Medical Devices section. Medical History Medical History Date Comments Hypertension ECHO 04/2014- LV EF 50-55% with mild LV dilatation Atrial fibrillation (HCC) briefl y noted on admit, no recurrence Non compliance w medication regimen Kidney calculi 1997 ASHD (arteriosclerotic heart disease) NUC 10/2014 MET 11.4 EF 45 Normal left ventricular perfusion study. There is no exercise induced ischemia. NSTEMI (non-ST elevated myoc ardial infarction) (HCC) Hyperlipidemia COPD (chronic obstructive pu lmonary disease) (HCC) Cirrhosis (HCC) GI Dr. [facility] in [place], [place]. Thrombocytopenia Family History Medical History Relation Name Comments Heart Disease Father Anesth Problems Neg Hx Relation Name Status Comments Father Mother Social History Tobacco Use Types Packs/Day Years Used Date Smoking Tobacco: Every Day Cigarettes 1 37.5 Started: 05/02/1987 Smokeless Tobacco: Former Chew Quit: 05/06/1989 Tobacco Cessation:Ready to Q uit: Not Asked; Counseling Given: Not Answered Alcohol Use Standard Drinks/Week Comments Not Currently 5 (1 standard drink = 0.6 oz pur e alcohol) Sex and Gender Information Value Date Recorded Sex Assigned at Not on file Legal Sex Male 5:34 AM EDT Gender Identity Not on file Sexual Orientation Not on file Obstetrics History Last Filed Vital Signs Vital Sign Reading Time Taken Comments Blood Pressure 124/80 05/10/2024 7:56 AM EST Pulse 67 05/10/2024 7:56 AM EST Temperature 36.8 C (98.2 F) 03/17/2024 10:00 AM EDT Respiratory Rate 16 03/17/2024 1:45 PM EDT Oxygen Saturation 97% 05/10/2024 7:56 AM EST Inhaled Oxygen Concentration - - Weight 96 kg (211 lb 9.6 oz) 05/10/2024 7:56 AM EST Height 177.8 cm (5' 10 ) 05/10/2024 7:56 AM EST Body Mass Index 30.36 05/10/2024 7:56 AM EST Plan of Treatment Upcoming Encounters Date Type Department Care Team (Late st Contact Info) Description 01/13/2025 9:30 AM EDT Office Visit [facility] [address] [place] [id number] Travis Lopez MD [address] [place] [address] Health Maintenance Due Date Last Done Comments Annual Wellness Exam 1969 DTaP/TDaP/Td (1 - Tdap) 1985 Cologuard 10/06/2011 Colon Cancer Screening 10/06/2011 Colonoscopy 10/06/2011 FIT 10/06/2011 Sigmoidoscopy 10/06/2011 Virtual Colonography 10/06/2011 Pneumococcal Vaccine 50+ (2 of 2 - PCV) 04/19/2015 04/19/2014 Zoster (1 of 2) 2016 COVID-19 Vaccine ( - season) 2024 Influenza Vaccine (Season Ended) 2025 04/19/2014 Low Dose Lung Cancer Screening 04/15/2025 04/15/2024 Hepatitis B Vaccine Completed 04/15/2024, 01/15/2024, 09/19/2022, Additional history exists Meningococcal B Vaccine Aged Out No l onger eligible based on patient's age to complete this topic Goals Goal Patient Goal Type Associated Problems Recent Progress Patient-Stated? Author Blood Pressure < 140/90 Blood Pressure 124/80(2023 7:56 AM EST) No Laura Frost Maintain a healthy diet, exercise regularly and maintain an ideal body weight General No Laura Frost Stay Tobacco Free Lifestyle No Laura Frost Medical Devices Implanted Type Area Ldr Nurse Device Identifier Shelf Expiration Date Model / Serial / Lot Stent Xience Xpedition Drug Eluting 3.0 X 33 - [id number] Implanted:Qty : 1 on 04/18/2014 by Travis Lopez MD at ED FRUIT PICKER MACHINE OPERATOR Explanted:at ED FRUIT PICKER MACHINE OPERATOR (Quantity not on file) Stent-X peditio n [facility]:VASC DEV [id number] 3 / / [id number] Stent Xience Xpedition Drug Eluting 4.0 X 33 - [id number] Implanted:Qty : 1 on 04/18/2014 by Travis Lopez MD at ED FRUIT PICKER MACHINE OPERATOR Explanted:at ED FRUIT PICKER MACHINE OPERATOR (Quantity not on file) Stent-X peditio n N/A: LAD [facility]:VASC DEV [id number] 3 / / [id number] [place] Sut Swivelk C 4.75x19.1mm [facility] - [id number] Implanted:Qty : 1 on 05/28/2022 by Faisal Dickinson MD at [facility] Left: Shoulder ARTHREX [id number] 11/21/2025 [id number] C / / [id number] Insurance ANTHEM PPO GABRIEL PPO Advance Directives For more information, please contact: [phone] * Full Code (Latest Code Status on File) Date Activated Date Inactivated Comments 04/17/2014 8:42 PM 04/20/2014 3:19 PM Care Teams Graining Operator Relationship Specialty Start Date End Date Rene Salinas [address] [facility] [address] [place] [address] PCP - General Family Medicine 11/08/14
--- OUTSIDE RECORDS SUMMARY | 2024-11-16 10:45 | XMS_ITS | Encounter Summary ---
Author Organization [facility] [place] [address] Care Team Providers Care Phone Engineer Name Role Phone Rene Salinas Primary Care Provider [phone] Reason for Visit * Reason Comments Medication Refill Encounter Details Date Type Department Care Team (Late st Contact Info) Description 2024 Refill [facility] [address] [place] [address] Travis Lopez MD [address] [place] [address] Medication Refill Social History Tobacco Use Types Packs/Day Years Used Date Smoking Tobacco: Every Day Cigarettes 1 37.5 Started: 05/02/1987 Smokeless Tobacco: Former Chew Quit: 05/06/1989 Alcohol Use Standard Drinks/Week Comments Not Currently 5 (1 standard drink = 0.6 oz pur e alcohol) Sex and Gender Information Value Date Recorded Sex Assigned at Not on file Legal Sex Male 5:34 AM EDT Gender Identity Not on file Sexual Orientation Not on file documented as of this encounter Functional Status * Is the person deaf or does he/she have serious difficulty hearing? Answer Date of Assessment Author No 04/20/2014 10:43 AM Lilian Hernández RN * Is the person blind or does he/she have serious difficulty seeing even when wearing glasses? Answer Date of Assessment Author No 04/20/2014 10:43 AM Lilian Hernández RN * Does this person have serious difficulty walking or climbing stairs? Answer Date of Assessment Author No 04/20/2014 10:43 AM Lilian Hernández RN * Does this person have difficulty dressing or bathing? Answer Date of Assessment Author No 04/20/2014 10:43 AM Lilian Hernández RN * Because of a physical, mental or emotional condition, does this person have difficulty doing errands alone such as visiting a doctor's office or shopping? Answer Date of Assessment Author No 04/20/2014 10:43 AM Lilian Hernández RN documented as of this encounter Mental Status * Because of a physical, mental or emotional condition, does this person have serious difficulty concentrating, remembering or making decisions? Answer Entry Date Author No 04/20/2014 10:43 AM Lilian Hernández RN documented in this encounter Miscellaneous Notes * Telephone Encounter - Shanta Hill CPhT - 10/06/2024 6:56 AM EDT Lisinopril-Hctz 20-25 Refill request deferred to the office: Medication discontinued or inactive on the medication list documented in this encounter Plan of Treatment Upcoming Encounters Date Type Department Care Team (Late st Contact Info) Description 01/13/2025 9:30 AM EDT [place] [address] Travis Lopez MD [address] [place] [address] documented as of this encounter Goals Goal Patient Goal Type Associated Problems Recent Progress Patient-Stated? Author Blood Pressure < 140/90 Blood Pressure 124/80(2023 7:56 AM EST) Laura Oliva Maintain a healthy diet, exercise regularly and maintain an ideal body weight General No Laura Frost Stay Tobacco Free Lifestyle Laura Oliva documented as of this encounter Visit Diagnoses Diagnosis Essential hypertension Unspecified essential hypertension documented in this encounter Care Teams Phone Engineer Relationship Specialty Start Date End Date Rene Salinas [address] [place] [address] PCP - General Family Medicine 11/08/14 documented as of this encounter
--- OUTSIDE RECORDS SUMMARY | 2024-11-16 10:45 | XMS_ITS | Data Portability ---
Author Organization MD - 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 MELD 3.0 score 8. Plan for referral for transplant evaluation with MELD >15. -EV: EGD scheduled for 09/17/21. -HE: None evidence at this time -Ascites/BLE edema: Recent CT did not show ascites. He does not complain of intermittent abdominal swelling. Counseled 2g sodium restricted diet. Will monitor. Mild ascites noted today, declines diuretics at this time -HCC screening: No liver mass on recent contrast enhanced CT scan from 06/13/21. Will check AFP now and q6 months, liver US due 11/2021 and q6 months thereafter. -immunity for hepatitis A and B 1st doses given today. follow-up scheduled. 2) Colorectal cancer screening: first avg risk screening colonoscopy scheduled for 09/17/21. [email or web address] Not available 03/07/2022 15:26:08 09/12/2022 09/12/2022 56-year-old male with: 1) Cirrhosis: Suspect alcohol induced, also has fatty liver. MELD Na score 7 based on February 2022 labs. Will recalculate after labs are drawn today. Plan for referral for transplant evaluation with MELD >15. -EV: EGD on 11/18/21 with no varices noted. Repeat 10/2024 or sooner with signs of decompensation. -HE: None evidence at this time -Ascites/BLE edema: None overt on exam today. Counseled 2g sodium restricted diet. Will monitor. Mild ascites noted today, declines diuretics at this time -HCC screening: Repeat US liver and AFP today and q 6 months. -immunity for hepatitis A and B: 1st doses for both received 02/2022. He missed the 2nd scheduled dose for hepatitis B vaccine. Patient will be made a nurse visit for 1 additional dose of each immunization, patient case created. -Educated on diet and weight loss -Patient had recent shoulder surgery and is taking meloxicam, recommended against continued use of this. Patient advised to take Tylenol for pain, not to exceed 2gm daily. -Continued abstinence from further drinking strongly encouraged. 2) Colorectal cancer screening: colonoscopy 11/18/21 showed 1 hyperplastic polyp and 1 tubular adenoma. Repeat recommended in 5 years. 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 MELD-Na score 7 based on August 2022 labs. Will recalculate after labs are drawn today. Plan for referral for transplant evaluation with MELD >15. -EV: EGD on 11/18/21 with no varices noted. Repeat 10/2024 or sooner with signs of decompensation. -HE: + asterixis. The patient does report some short term memory issues. Will start Xifaxan 550 mg p.o. b.i.d. today. -Ascites/BLE edema: 2+ Bilateral lower extremity edema as well as ascites present on exam. Will start spironolactone 50 mg p.o. once daily and furosemide 20 mg p.o. once daily. Will send standing order to radiology for paracentesis as needed. Discussed the need for paracentesis now. Counseled 2g sodium restricted diet. -HCC screening: Repeat US liver and AFP today and q 6 months. -immunity for hepatitis A and B: 1st doses for both received 02/2022. Unsure if patient received any further doses. Will verify and schedule patient for immunization if needed. Patient case created. -Educated on diet and weight loss -Continue to avoid NSAIDs. Patient advised to take Tylenol for pain, not to exceed 2gm daily. -Continued abstinence from further drinking strongly encouraged. 2) Colorectal cancer screening: colonoscopy 11/18/21 showed 1 hyperplastic polyp and 1 tubular adenoma. Repeat recommended in 5 years. 6 month follow-up [email or web address] Not available 05/21/2023 11:02:15 11/20/2023 11/20/2023 56-year-old male with: 1) Cirrhosis: Suspect alcohol induced. Previous liver workup for underlying etiology in 2021 was negative. MELD-Na score 9 based on 11/17/23 labs at appointment with [facility]. -Liver ultrasound after last office visit 06/10/23 showed right hepatic lesion, recommended CT follow up. Subsequent CT abdomen on 06/30/23 revealed right hepatic lesion without further classification and recommended MRI. The patient was unsure if he could have an MRI due to previous surgery with possible metal placement. He did follow up with his doctor and was cleared to have MRI. MRI on 10/13/23 showed 2 subtle areas of hypoenhancement nonspecific imaging characteristics with benign and malignant etiologies possible. Recommend follow-up liver MRI in 3-6 months. He was referred to liver transplant for further evaluation. He saw [facility] on 11/17/2023. MELD-Na was 8 at their visit on 11/17/23. They recommend repeat MRI in 3 months. He continues to follow with them. -EV: EGD on 11/18/21 with no varices noted. Repeat 10/2024 or sooner with signs of decompensation. -HE: + asterixis. Denies memory issues confusion or falls. Patient was unable to afford Xifaxan previously. -Ascites/BLE edema: No ascites or bilateral lower extremity edema noted today. Continue spironolactone 50 mg p.o. once daily and furosemide 20 mg p.o. once daily. Counseled 2g sodium restricted diet. -HCC screening: Liver MRI in 3 months with [facility]. -Immunity for hepatitis A and B: 1st doses for both received 02/2022. Unsure if patient received any further doses. -Educated on diet and weight loss -Continue to avoid NSAIDs. Patient advised to take Tylenol for pain, not to exceed 2gm daily. -Continued abstinence from further drinking strongly encouraged. 2) Fatigue, hand cramping - Electrolytes were WDL on lab work with [facility] 11/17/2023. Will check labs per below for evaluation of fatigue or other electrolyte abnormalities causing hand cramping. - Counseled patient on adequate hydration 3) Colorectal cancer screening: colonoscopy 11/18/21 showed 1 hyperplastic polyp and 1 tubular adenoma. Repeat recommended in 5 years. 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 Previous liver workup for underlying etiology in 2021 was negative otherwise. MELD-3.0 score 6 based on 04/15/24 labs at appointment with [facility]. He was discharged from there clinic due to stable condition and referred to hepatology for ongoing monitoring. Due to recent report of RACHELE at [facility], we will obtain those records and repeat his labs per below. -Liver ultrasound after last office visit 06/10/23 showed right hepatic lesion, Subsequent MRIs at appear c/w hepatic cysts. -EV: EGD on 11/18/21 with no varices noted. He was started on a Carvedilol twice daily by [facility]. -HE: Previously with asterixis. Patient was unable to afford Xifaxan previously. He is assymptomatic regarding HE currently. -Ascites/BLE edema: No ascites or bilateral lower extremity edema noted today. Continue spironolactone 50 mg p.o. once daily and furosemide 20 mg p.o. once daily. Counseled 2g sodium restricted diet. -HCC screening: MRI 03/2024 at [facility] appeared c/w hepatic cysts. -Immunity for hepatitis A and B: 1st doses for both received 02/2022. Unsure if patient received any further doses. -Educated on diet and weight loss -Continue to avoid NSAIDs. Patient advised to take Tylenol for pain, not to exceed 2gm daily. -Continued abstinence from further drinking strongly encouraged. 2) New onset DM: He has started treatment with insulin. Treatment with Farxiga is being considered. I feel he should be okay for this from a liver standpoint. They have reached out to the transplant clinic for their opinion as well. 3) Colorectal cancer screening: colonoscopy 11/18/21 showed 1 hyperplastic polyp and 1 tubular adenoma. Repeat recommended in 5 years. 6 month follow-up, unless otherwise indicated by lab findings. [email or web address] Not available 07/15/2024 16:58:51 Plan of Treatment Reminders Order Date Submit Date Provider Last Modified By Organization Details Last Modified Time Details Appointments Establish ed Visit 15 min 2024 09:00A M Bryant Rogers PA-C Not available Not available Not available Lab CMP, serum or plasma 2024 025 JANET [facility], [address], [address], [place], [address], 07/18/2024 16:11:30 CBC 2024 025 JANET [facility], [address], [address], [place], [address], 07/18/2024 16:11:31 afp (alpha-fe toprotein ) tumor marker, serum or plasma 2024 025 JANET [facility], [address], [address], [place], [address], 07/18/2024 16:11:33 PT/INR 2024 025 JANET [facility], [address], [address], [place], [address], 07/18/2024 16:11:32 vitamin B12 + folate, serum or blood 2023 024 JANET [facility], [address], [address], [place], [address], 11/25/2023 11:14:09 thiamine, QN, blood 2023 024 JANET [facility], [address], [address], [place], [address], 11/25/2023 11:14:10 magnesium , serum or plasma 2023 024 JANET [facility], [address], [address], [place], [address], 11/25/2023 11:14:11 vitamin D, 25-hydrox y, total, serum 2023 024 JANET [facility], [address], [address], [place], [address], 11/25/2023 11:14:09 iron + total iron-bind ing capacity (TIBC), serum 2023 024 JANET [facility], [address], [address], [place], [address], 11/25/2023 11:14:08 ferritin, serum or plasma 2023 024 JANET [facility], [address], [address], [place], [address], 11/25/2023 11:14:11 vitamin D, 25-hydrox y, total, serum 2023 024 JANET [facility], [address], [address], [place], [address], 11/25/2023 11:28:40 CBC 2022 023 JANET [facility], [address], [address], [place], [address], 05/21/2023 16:11:29 CMP, serum or plasma 2022 023 JANET [facility], [address], [address], [place], [address], 05/21/2023 16:11:28 PT/INR 2022 023 JANET [facility], [address], [address], [place], [address], 05/21/2023 16:11:30 afp (alpha-fe toprotein ) tumor marker, serum or plasma 2022 023 MEAD [facility], [address], [address], [place], [address], 05/21/2023 16:11:31 cell count w/ diff, body fluid 2022 023 [email or web address] [facility] (Centralized Scheduling), [address], [place], [address], 07/08/2023 09:05:51 CBC 2022 023 [email or web address] [address] [place] [address] (Registration ), [address], [place], [address], 09/19/2022 11:22:46 PT/INR [address] (Registration ), [address], [place], [address], 09/19/2022 11:22:47 CMP, serum or plasma 2022 023 [facility] (Registration ), [address], [place], [address], 09/12/2022 11:10:17 afp (alpha-fe toprotein ), serum [address] (Registration ), [address], [place], [address], 09/19/2022 11:22:47 CBC [address] (Registration ), [address], [place], [address], 03/17/2022 13:27:30 PT/INR [address] (Registration ), [address] [place], [address], 03/17/2022 13:27:30 CMP, serum or plasma 2021 022 [facility] (Registration ), [address], [place], [address], 03/07/2022 11:37:32 afp (alpha-fe toprotein ), serum [address] (Registration ), [address], [place], [address], 03/17/2022 13:27:31 Referral None recorded. Procedures abdominal paracente sis; with imaging guidance (PROC) - See other order for fluid analysis. Standing order [address] (Centralized Scheduling), [address], [place], [address], 07/22/2023 16:40:40 Surgeries None recorded. Imaging US, liver 2022 023 [facility] (Centralized Scheduling), [address], [place], [address], 06/10/2023 13:32:36 US, liver [address] (Centralized Scheduling), [address], [place], [address], 10/07/2022 09:32:48 US, abdomen, complete [address] (Centralized Scheduling), [address], [place], [address], 04/03/2022 08:41:28 Medication Orders Xifaxan 550 mg tablet 2022 023 [email or web address] [facility]/Pharmacy #[id number], [address] [place], [address], 07/15/2024 09:44:43 spironola ctone 50 mg tablet [address] [facility]/Pharmacy #[id number], [facility] [place], [address], 05/20/2023 15:12:23 furosemid e 20 mg tablet [address] [facility]/Pharmacy #[id number], [facility] [place], [address], 05/20/2023 15:12:24 Patient TargetsNo targets recorded. Patient InstructionsNo instructions recorded. Reason for Referral None Reported. Results Created Date Observation Date Name Description Value Unit Range Abnormal Flag Note LastModifiedBy Organization Detail LastModifiedTime 03/07/2003/07/2022 CBC AUTO W DIFF WBC 6.4 K/uL 4.0-10 .5 Not Available [facility] ([facility]) [address] [place], [address], 03/07/2022 11:07:41 03/07/20 22 03/07/2022 CBC AUTO W DIFF RBC 5.2 M/mm3 4.7-6. 1 Not Available [facility] ([facility]) [address] [facility], [place], [address], 03/07/2022 11:07:41 03/07/20 22 03/07/2022 CBC AUTO W DIFF HGB 15.5 gm/dL 13.5-1 8.0 Not Available [facility] ([facility]) [address] [facility], [place], [address], 03/07/2022 11:07:41 03/07/20 22 03/07/2022 CBC AUTO W DIFF HCT 45.9 % 42.0-5 2.0 Not Available [facility] ([facility]) [address] [facility], [place], [address], 03/07/2022 11:07:41 10/03/07/2022 CBC AUTO W DIFF MCV 88.6 fL 78-100 Not Available [facility] ([facility]) [address] , [place], [address], 03/07/2022 11:07:41 03/07/20 22 03/07/2022 CBC AUTO W DIFF MCH 29.9 pg 27-31 Not Available [facility] ([facility]) [address] , [place], [address], 03/07/2022 11:07:41 03/07/20 22 03/07/2022 CBC AUTO W DIFF MCHC 33.8 g/dL 32-36 Not Available [facility] ([facility]) [address] , [place], [address], 03/07/2022 11:07:41 03/07/20 22 03/07/2022 CBC AUTO W DIFF RDW 14.5 % 11.5-1 4.0 high Not Available [facility] ([facility]) [address] , [place], [address], 03/07/2022 11:07:41 03/07/20 22 03/07/2022 CBC AUTO W DIFF platelet count 84 K/uL 150-45 0 low Not Available [facility] ([facility]) [address] , [place], [address], 03/07/2022 11:07:41 03/07/20 22 03/07/2022 CBC AUTO W DIFF neutrophil% 64.1 % 43-65 Not Available [facility] ([facility]) [address] , [place], [address], 03/07/2022 11:07:41 03/07/20 22 03/07/2022 CBC AUTO W DIFF lymphocyte% 22.9 % 20.5-4 5.5 Not Available [facility] ([facility]) [address] , [place], [address], 03/07/2022 11:07:41 03/07/20 22 03/07/2022 CBC AUTO W DIFF monocyte% 8.5 % 5.5-11 .7 Not Available [facility] ([facility]) [address] [facility], [place], [address], 03/07/2022 11:07:41 03/07/20 22 03/07/2022 CBC AUTO W DIFF eosinophil% 3.9 % 0.9-2. 9 high Not Available [facility] ([facility]) [address] [facility], [place], [address], 03/07/2022 11:07:41 03/07/20 22 03/07/2022 CBC AUTO W DIFF basophil% 0.6 % 0.2-1. 0 Not Available [facility] ([facility]) [address] [facility], [place], [address], 03/07/2022 11:07:41 03/07/20 22 03/07/2022 CBC AUTO W DIFF neutrophil# 4.1 K/uL 2.2-4. 8 Not Available [facility] ([facility]) [address] [place], [address], 03/07/2022 11:07:41 03/07/20 22 03/07/2022 CBC AUTO W DIFF lymphocyte# 1.5 cell/ mcL 1.3-2. 9 Not Available [facility] ([facility]) [address] [place], [address], 03/07/2022 11:07:41 03/07/20 22 03/07/2022 CBC AUTO W DIFF monocyte# 0.5 cell/ mcL 0.3-0. 8 Not Available [facility] ([facility]) [address] [place], [address], 03/07/2022 11:07:41 03/07/20 22 03/07/2022 CBC AUTO W DIFF eosinophil# 0.3 cell/ mcL 0-0.2 high Not Available [facility] ([facility]) [address], [place], [address], 03/07/2022 11:07:41 03/07/2003/07/2022 CBC AUTO W DIFF basophil# 0.0 cell/ mcL 0.0-1. 0 Not Available [facility] ([facility]) [address], [place], [address], 03/07/2022 11:07:41 03/07/20 22 03/07/2022 CBC AUTO W DIFF manual differential NO Not Available [facility] ([facility]) [address], [place], [address], 03/07/2022 11:07:41 03/07/20 22 03/07/2022 COMP METAB OLIC PANEL sodium 141 mmol/ L 136-14 5 Not Available [facility] ([facility]) [address] , [place], [address], 03/07/2022 11:37:32 03/07/2003/07/2022 COMP METAB OLIC PANEL potassium 3.5 mmol/ L 3.6-5. 0 low Not Available [facility] ([facility]) [address], [place], [address], 03/07/2022 11:37:32 03/07/20 22 03/07/2022 COMP METAB OLIC PANEL chloride 105 mmol/ L 98-107 Not Available [facility] ([facility]) [address], [place], [address], 03/07/2022 11:37:32 03/07/20 22 03/07/2022 COMP METAB OLIC PANEL carbon dioxide 29.7 mmol/ L 21.0-3 2.0 Not Available [facility] ([facility]) [address] , [place], [address], 03/07/2022 11:37:32 03/07/20 22 03/07/2022 COMP METAB OLIC PANEL anion gap 9.8 Not Available [facility] ([facility]) [address], [place], [address], 03/07/2022 11:37:32 03/07/20 22 03/07/2022 COMP METAB OLIC PANEL glucose 132 mg/dL 70-120 high Not Available [facility] ([facility]) [address] , [place], [address], 03/07/2022 11:37:32 03/07/20 22 03/07/2022 COMP METAB OLIC PANEL BUN 9 mg/dL 7-18 Not Available [facility] ([facility]) [address] , [place], [address], 03/07/2022 11:37:32 03/07/20 22 03/07/2022 COMP METAB OLIC PANEL creatinine 0.7 mg/dL 0.6-1. 3 Not Available [facility] ([facility]) [address] , [place], [address], 03/07/2022 11:37:32 03/07/20 22 03/07/2022 COMP METAB OLIC PANEL glomerular filtration rate >60 mlper min 60- Not Available [facility] ([facility]) [address] , [place], [address], 03/07/2022 11:37:32 03/07/20 22 03/07/2022 COMP METAB OLIC PANEL total protein 7.5 g/dL 6.4-8. 2 Not Available [facility] ([facility]) [address] , [place], [address], 03/07/2022 11:37:32 03/07/20 22 03/07/2022 COMP METAB OLIC PANEL albumin 3.3 g/dL 3.4-5. 0 low Not Available [facility] ([facility]) [address] , [place], [address], 03/07/2022 11:37:32 03/07/20 22 03/07/2022 COMP METAB OLIC PANEL globulin 4.2 Not Available [facility] ([facility]) [address], [place], [address], 03/07/2022 11:37:32 03/07/20 22 03/07/2022 COMP METAB OLIC PANEL alb/glob ratio 0.8 0.7-2 Not Available [facility] ([facility]) [address] , [place], [address], 03/07/2022 11:37:32 03/07/20 22 03/07/2022 COMP METAB OLIC PANEL calcium 8.5 mg/dL 8.5-10 .5 Not Available [facility] ([facility]) [address], [place], [address], 03/07/2022 11:37:32 03/07/20 22 03/07/2022 COMP METAB OLIC PANEL bilirubin total 0.84 mg/dL 0.10-1 .00 Not Available [facility] ([facility]) [address], [place], [address], 03/07/2022 11:37:32 03/07/20 22 03/07/2022 COMP METAB OLIC PANEL AST (SGOT) 26 U/L 0-37 Not Available [facility] ([facility]) [address] , [place], [address], 03/07/2022 11:37:32 03/07/20 22 03/07/2022 COMP METAB OLIC PANEL ALT (SGPT) 41 U/L 0-65 Not Available [facility] ([facility]) [address], [place], [address], 03/07/2022 11:37:32 03/07/20 22 03/07/2022 COMP METAB OLIC PANEL alk phosphatase 110 U/L 46-116 Not Available [facility] ([facility]) [address] , [place], [address], 03/07/2022 11:37:32 03/07/2003/07/2022 PT (PROT HROMB IN TIME) W INR prothrombin time 11.1 secon ds 9.3-11 .4 Not Available [facility] ([facility]) [address] , [place], [address], 03/07/2022 11:58:58 03/07/2003/07/2022 PT (PROT HROMB IN TIME) W INR INR 1.1 ratio 0.97-1 .05 high INR is inten ded to be used ONLY for patie nts on stabl e oral antic oagul ant thera py. Thera peuti c Range s: 2.0-3 .0 Usual Thera peuti c Range 2.5-3 .5 For patie nts with histo ry of Multi ple Deep Vein Throm bus or Mecha nical Heart Valve s Not Available [facility] ([facility]) [address] , [place], [address], 03/07/2022 11:58:58 03/07/2003/07/2022 CBC AUTO NO DIFF (HEMO GRAM) WBC 6.4 K/uL 4.0-10 .5 Not Available [facility] ([facility]) [address] , [place], [address], 03/07/2022 13:06:38 03/07/2003/07/2022 CBC AUTO NO DIFF (HEMO GRAM) RBC 5.2 M/mm3 4.7-6. 1 Not Available [facility] ([facility]) [address] , [place], [address], 03/07/2022 13:06:38 03/07/20 22 03/07/2022 CBC AUTO NO DIFF (HEMO GRAM) HGB 15.5 gm/dL 13.5-1 8.0 Not Available [facility] ([facility]) [address] [facility], [place], [address], 03/07/2022 13:06:38 03/07/20 22 03/07/2022 CBC AUTO NO DIFF (HEMO GRAM) HCT 45.9 % 42.0-5 2.0 Not Available [facility] ([facility]) [address], [place], [address], 03/07/2022 13:06:38 03/07/20 22 03/07/2022 CBC AUTO NO DIFF (HEMO GRAM) MCV 88.6 fL 78-100 Not Available [facility] ([facility]) [address], [place], [address], 03/07/2022 13:06:38 03/07/20 22 03/07/2022 CBC AUTO NO DIFF (HEMO GRAM) MCH 29.9 pg 27-31 Not Available [facility] ([facility]) [address], [place], [address], 03/07/2022 13:06:38 03/07/20 22 03/07/2022 CBC AUTO NO DIFF (HEMO GRAM) MCHC 33.8 g/dL 32-36 Not Available [facility] ([facility]) [address], [place], [address], 03/07/2022 13:06:38 03/07/20 22 03/07/2022 CBC AUTO NO DIFF (HEMO GRAM) RDW 14.5 % 11.5-1 4.0 high Not Available [facility] ([facility]) [address], [place], [address], 03/07/2022 13:06:38 03/07/20 22 03/07/2022 CBC AUTO NO DIFF (HEMO GRAM) platelet count 84 K/uL 150-45 0 low Not Available [facility] ([facility]) [address] [facility], [place], [address], 03/07/2022 13:06:38 03/07/20 22 03/07/2022 CBC AUTO NO DIFF (HEMO GRAM) manual differential NO Not Available [facility] ([facility]) [address], [place], [address], 03/07/2022 13:06:38 03/07/20 22 03/08/2022 AFP, SERUM , TUMOR MARKE R AFP, serum tumor marker 5.9 NG/mL 0.0-8. 4 Yuki Diagn ostic s Elect yuki milum inesc ence Immun oassa y (ECLI A) . Value s obtai ruddy with diffe rent assay metho ds or kits canno t be used inter garcia eably . Resul ts canno t be inter prete d as absol redding evide nce of the prese nce or absen ce of heatl franco disea se. . This test is not inter preta ble in pregn ant femal es. Perfo rmed at: - [facility] [address] Lab Direc tor: Javan jimenes PhD, Phone : [phone] Not Available [facility] ([facility]) [address], [place], [address], 03/08/2022 11:17:58 09/13/19 23 09/12/2022 CBC AUTO NO DIFF (HEMO GRAM) WBC 4.9 K/uL 4.0-10 .5 Not Available [facility] ([facility]) [address], [place], [address], 09/12/2022 10:16:34 09/13/19 23 09/12/2022 CBC AUTO NO DIFF (HEMO GRAM) RBC 5.2 M/mm3 4.7-6. 1 Not Available [facility] ([facility]) [address] [facility], [place], [address], 09/12/2022 10:16:34 09/13/19 23 09/12/2022 CBC AUTO NO DIFF (HEMO GRAM) HGB 15.0 gm/dL 13.5-1 8.0 Not Available [facility] [facility] ([facility]) [address], [place], [address], 09/12/2022 10:16:34 09/13/19 23 09/12/2022 CBC AUTO NO DIFF (HEMO GRAM) HCT 44.5 % 42.0-5 2.0 Not Available [facility] ([facility]) [address], [place], [address], 09/12/2022 10:16:34 09/13/19 23 09/12/2022 CBC AUTO NO DIFF (HEMO GRAM) MCV 85.6 fL 78-100 Not Available [facility] ([facility]) [address], [place], [address], 09/12/2022 10:16:34 09/13/19 23 09/12/2022 CBC AUTO NO DIFF (HEMO GRAM) MCH 28.8 pg 27-31 Not Available [facility] ([facility]) [address], [place], [address], 09/12/2022 10:16:34 09/13/19 23 09/12/2022 CBC AUTO NO DIFF (HEMO GRAM) MCHC 33.7 g/dL 32-36 Not Available [facility] ([facility]) [address], [place], [address], 09/12/2022 10:16:34 09/13/19 23 09/12/2022 CBC AUTO NO DIFF (HEMO GRAM) RDW 14.4 % 11.5-1 4.0 high Not Available [facility] ([facility]) [address], [place], [address], 09/12/2022 10:16:34 09/13/19 23 09/12/2022 CBC AUTO NO DIFF (HEMO GRAM) platelet count 69 K/uL 150-45 0 low Not Available [facility] ([facility]) [address], [place], [address], 09/12/2022 10:16:34 09/13/19 23 09/12/2022 CBC AUTO NO DIFF (HEMO GRAM) manual differential NO Not Available [facility] ([facility]) [address], [place], [address], 09/12/2022 10:16:34 09/13/19 23 09/12/2022 PT (PROT HROMB IN TIME) W INR prothrombin time 11.7 secon ds 9.3-11 .4 high Not Available [facility] ([facility]) [address] , [place], [address], 09/12/2022 10:35:54 09/13/19 23 09/12/2022 PT (PROT HROMB IN TIME) W INR INR 1.1 ratio 0.97-1 .05 high INR is inten ded to be used ONLY for patie nts on stabl e oral antic oagul ant thera py. Thera peuti c Range s: 2.0-3 .0 Usual Thera peuti c Range 2.5-3 .5 For patie nts with histo ry of Multi ple Deep Vein Throm bus or Mecha nical Heart Valve s Not Available [facility] ([facility]) [address] , [place], [address], 09/12/2022 10:35:54 09/13/19 23 09/12/2022 COMP METAB OLIC PANEL sodium 139 mmol/ L 136-14 5 Not Available [facility] ([facility]) [address] , [place], [address], 09/12/2022 11:10:17 09/13/19 23 09/12/2022 COMP METAB OLIC PANEL potassium 3.3 mmol/ L 3.6-5. 0 low Not Available [facility] ([facility]) [address] [place], [address], 09/12/2022 11:10:17 09/13/19 23 09/12/2022 COMP METAB OLIC PANEL chloride 106 mmol/ L 98-107 Not Available [facility] ([facility]) [address] , [place], [address], 09/12/2022 11:10:17 09/13/19 23 09/12/2022 COMP METAB OLIC PANEL carbon dioxide 24.9 mmol/ L 21.0-3 2.0 Not Available [facility] ([facility]) [address] , [place], [address], 09/12/2022 11:10:17 09/13/19 23 09/12/2022 COMP METAB OLIC PANEL anion gap 11.4 Not Available [facility] ([facility]) [address] , [place], [address], 09/12/2022 11:10:17 09/13/19 23 09/12/2022 COMP METAB OLIC PANEL glucose 158 mg/dL 70-120 high Not Available [facility] ([facility]) [address] , [place], [address], 09/12/2022 11:10:17 09/13/19 23 09/12/2022 COMP METAB OLIC PANEL BUN 13 mg/dL 7-18 Not Available [facility] ([facility]) [address] , [place], [address], 09/12/2022 11:10:17 09/13/19 23 09/12/2022 COMP METAB OLIC PANEL creatinine 0.8 mg/dL 0.6-1. 3 Not Available [facility] ([facility]) [address] , [place], [address], 09/12/2022 11:10:17 09/13/19 23 09/12/2022 COMP METAB OLIC PANEL glomerular filtration rate >60 mlper min 60- Not Available [facility] ([facility]) [address], [place], [address], 09/12/2022 11:10:17 09/13/19 23 09/12/2022 COMP METAB OLIC PANEL total protein 7.6 g/dL 6.4-8. 2 Not Available [facility] ([facility]) [address], [place], [address], 09/12/2022 11:10:17 09/13/19 23 09/12/2022 COMP METAB OLIC PANEL albumin 3.3 g/dL 3.4-5. 0 low Not Available [facility] ([facility]) [address], [place], [address], 09/12/2022 11:10:17 09/13/19 23 09/12/2022 COMP METAB OLIC PANEL globulin 4.3 Not Available [facility] ([facility]) [address] , [place], [address], 09/12/2022 11:10:17 09/13/19 23 09/12/2022 COMP METAB OLIC PANEL alb/glob ratio 0.8 0.7-2 Not Available [facility] ([facility]) [address], [place], [address], 09/12/2022 11:10:17 09/13/19 23 09/12/2022 COMP METAB OLIC PANEL calcium 8.6 mg/dL 8.5-10 .5 Not Available [facility] ([facility]) [address], [place], [address], 09/12/2022 11:10:17 09/13/19 23 09/12/2022 COMP METAB OLIC PANEL bilirubin total 0.80 mg/dL 0.10-1 .00 Not Available [facility] ([facility]) [address] , [place], [address], 09/12/2022 11:10:17 09/13/19 23 09/12/2022 COMP METAB OLIC PANEL AST (SGOT) 33 U/L 0-37 Not Available [facility] ([facility]) [address], [place], [address], 09/12/2022 11:10:17 09/13/19 23 09/12/2022 COMP METAB OLIC PANEL ALT (SGPT) 33 U/L 0-65 Not Available [facility] ([facility]) [address], [place], [address], 09/12/2022 11:10:17 09/13/19 23 09/12/2022 COMP METAB OLIC PANEL alk phosphatase 124 U/L 46-116 high Not Available [facility] ([facility]) [address], [place], [address], 09/12/2022 11:10:17 09/13/19 23 09/13/2022 AFP, SERUM , TUMOR MARKE R AFP, serum tumor marker 5.8 NG/mL 0.0-8. 4 Yuki Diagn ostic s Elect yuki milum inesc ence Immun oassa y (ECLI A) . Value s obtai ruddy with diffe rent assay metho ds or kits canno t be used inter garcia eably . Resul ts canno t be inter prete d as absol redding evide nce of the prese nce [facility] . This test is not inter preta ble in pregn ant femal es. Perfo rmed at: - [place] [id number] Lab Direc tor: Javan jimenes PhD, Phone : [phone] Not Available [facility] ([facility]) [address] [facility], [place], [address], 09/13/2022 10:12:58 05/20/20 23 05/21/2023 COMP. METAB OLIC PANEL (14) glucose 208 mg/dL 70-99 above high normal Not Available [facility] ([facility]) [address], [place], [address], 05/21/2023 16:11:28 05/20/20 23 05/21/2023 COMP. METAB OLIC PANEL (14) BUN 14 mg/dL 6-24 Not Available [facility] ([facility]) [address] [place], [address], 05/21/2023 16:11:28 05/20/20 23 05/21/2023 COMP. METAB OLIC PANEL (14) creatinine 0.88 mg/dL 0.76-1 .27 Not Available [facility] ([facility]) [address] [place], [address], 05/21/2023 16:11:28 05/20/20 23 05/21/2023 COMP. METAB OLIC PANEL (14) eGFR 101 mL/mi n/1.7 3 >59 Not Available [facility] ([facility]) [address] [place], [address], 05/21/2023 16:11:28 05/20/20 23 05/21/2023 COMP. METAB OLIC PANEL (14) BUN/creatini ne ratio 16 9-20 Not Available [facility] ([facility]) [address] [place], [address], 05/21/2023 16:11:28 05/20/20 23 05/21/2023 COMP. METAB OLIC PANEL (14) sodium 141 mmol/ L 134-14 4 Not Available [facility] ([facility]) [address] [place], [address], 05/21/2023 16:11:28 05/20/20 23 05/21/2023 COMP. METAB OLIC PANEL (14) potassium 3.8 mmol/ L 3.5-5. 2 Not Available [facility] ([facility]) [address] [place], [address], 05/21/2023 16:11:28 05/20/20 23 05/21/2023 COMP. METAB OLIC PANEL (14) chloride 105 mmol/ L 96-106 Not Available [facility] ([facility]) [address] [place], [address], 05/21/2023 16:11:28 05/20/20 23 05/21/2023 COMP. METAB OLIC PANEL (14) carbon dioxide, total 21 mmol/ L 20-29 Not Available [facility] ([facility]) [address], [place], [address], 05/21/2023 16:11:28 05/20/20 23 05/21/2023 COMP. METAB OLIC PANEL (14) calcium 9.0 mg/dL 8.7-10 .2 Not Available [facility] ([facility]) [address], [place], [address], 05/21/2023 16:11:28 05/20/20 23 05/21/2023 COMP. METAB OLIC PANEL (14) protein, total 7.1 g/dL 6.0-8. 5 Not Available [facility] ([facility]) [address] [place], [address], 05/21/2023 16:11:28 05/20/20 23 05/21/2023 COMP. METAB OLIC PANEL (14) albumin 3.8 g/dL 3.8-4. 9 Not Available [facility] ([facility]) [address] [place], [address], 05/21/2023 16:11:28 05/20/20 23 05/21/2023 COMP. METAB OLIC PANEL (14) globulin, total 3.3 g/dL 1.5-4. 5 Not Available [facility] ([facility]) [address] [facility] [place], [address], 05/21/2023 16:11:28 05/20/20 23 05/21/2023 COMP. METAB OLIC PANEL (14) A/G ratio 1.2 1.2-2. 2 Not Available [facility] ([facility]) [address] [facility] [place], [address], 05/21/2023 16:11:28 05/20/20 23 05/21/2023 COMP. METAB OLIC PANEL (14) bilirubin, total 0.6 mg/dL 0.0-1. 2 Not Available [facility] ([facility]) [address] [facility] [place], [address], 05/21/2023 16:11:28 05/20/20 23 05/21/2023 COMP. METAB OLIC PANEL (14) alkaline phosphatase 140 IU/L 44-121 above high normal Not Available [facility] ([facility]) [address], [place], [address], 05/21/2023 16:11:28 05/20/20 23 05/21/2023 COMP. METAB OLIC PANEL (14) AST (SGOT) 35 IU/L 0-40 Not Available [facility] ([facility]) [address] [facility] [place], [address], 05/21/2023 16:11:28 05/20/20 23 05/21/2023 COMP. METAB OLIC PANEL (14) ALT (SGPT) 32 IU/L 0-44 Not Available [facility] ([facility]) [address] [place], [address], 05/21/2023 16:11:28 05/20/20 23 05/21/2023 CBC, PLATE LET, NO DIFFE RENTI AL WBC 5.2 x10e3 /uL 3.4-10 .8 Not Available [facility] ([facility]) [address] [place], [address], 05/21/2023 16:11:29 05/20/20 23 05/21/2023 CBC, PLATE LET, NO DIFFE RENTI AL RBC 5.30 x10e6 /uL 4.14-5 .80 Not Available [facility] ([facility]) [address], [place], [address], 05/21/2023 16:11:29 05/20/20 23 05/21/2023 CBC, PLATE LET, NO DIFFE RENTI AL hemoglobin 15.8 g/dL 13.0-1 7.7 Not Available [facility] ([facility]) [address], [place], [address], 05/21/2023 16:11:29 05/20/20 23 05/21/2023 CBC, PLATE LET, NO DIFFE RENTI AL hematocrit 45.5 % 37.5-5 1.0 Not Available [facility] ([facility]) [address] [facility] [address], [place], [address], 05/21/2023 16:11:29 05/20/20 23 05/21/2023 CBC, PLATE LET, NO DIFFE RENTI AL MCV 86 fL 79-97 Not Available [facility] ([facility]) [address], [place], [address], 05/21/2023 16:11:29 05/20/20 23 05/21/2023 CBC, PLATE LET, NO DIFFE RENTI AL MCH 29.8 pg 26.6-3 3.0 Not Available [facility] ([facility]) [address], [place], [address], 05/21/2023 16:11:29 05/20/20 23 05/21/2023 CBC, PLATE LET, NO DIFFE RENTI AL MCHC 34.7 g/dL 31.5-3 5.7 Not Available [facility] ([facility]) [address], [place], [address], 05/21/2023 16:11:29 05/20/20 23 05/21/2023 CBC, PLATE LET, NO DIFFE RENTI AL RDW 13.3 % 11.6-1 5.4 Not Available [facility] ([facility]) [address], [place], [address], 05/21/2023 16:11:29 05/20/20 23 05/21/2023 CBC, PLATE LET, NO DIFFE RENTI AL platelets 70 x10e3 /uL 150-45 0 alert low Plate let count verif ied by exami natio n of perip heral blood smear . Not Available [facility] ([facility]) [address], [place], [address], 05/21/2023 16:11:29 05/20/20 23 05/21/2023 CBC, PLATE LET, NO DIFFE RENTI AL hematology comments: NOTE: Verif ied by micro scopi c exami natio n. Not Available [facility] ([facility]) [address], [place], [address], 05/21/2023 16:11:29 05/20/20 23 05/21/2023 CBC, PLATE LET, NO DIFFE RENTI AL NRBC ONLINE AFFILIATE MARKETING MANAGER Not Available [facility] ([facility]) [address], [place], [address], 05/21/2023 16:11:29 05/20/20 23 05/21/2023 PROTH ROMBI N TIME (PT), SERIA L INR 1.0 0.9-1. 2 Refer ence inter kimberly is for non-a ntico agula krista patie nts. Sugge sted INR thera peuti c range for Vitam in K antag onist thera py: Stand rahul Dose (mode rate inten sity thera peuti c range ): 2.0 - 3.0 Highe r inten sity thera peuti c range 2.5 - 3.5 Not Available [facility] ([facility]) [address] [facility] [address], [place], [address], 05/21/2023 16:11:30 05/20/20 23 05/21/2023 PROTH ROMBI N TIME (PT), SERIA L prothrombin time 11.2 sec 9.1-12 .0 Not Available [facility] ([facility]) [address] [place], [address], 05/21/2023 16:11:30 05/20/20 23 05/21/2023 PROTH ROMBI N TIME (PT), SERIA L pdf . Not Available [facility] ([facility]) [address], [place], [address], 05/21/2023 16:11:30 05/20/20 23 05/21/2023 AFP, SERUM , TUMOR MARKE R AFP, serum, tumor marker 5.0 NG/mL 0.0-8. 4 Yuki Diagn ostic s Elect yuki milum inesc ence Immun oassa y (ECLI A) Value s obtai ruddy with diffe rent assay metho ds or kits canno t be used inter garcia eay . Resul ts canno t be inter prete d as absol redding evide nce of the prese nce or absen ce [facility]. This test is not inter preta ble in pregn ant femal es. Not Available [facility] ([facility]) [address], [place], [address], 05/21/2023 16:11:31 11/20/19 24 11/21/2023 IRON AND TIBC iron bind.cap.(TI BC) 308 ug/dL 250-45 0 Not Available [facility] ([facility]) [address] [place], [address], 11/25/2023 11:14:08 11/20/19 24 11/21/2023 IRON AND TIBC UIBC 142 ug/dL 111-34 3 Not Available [facility] ([facility]) [address], [place], [address], 11/25/2023 11:14:08 11/20/19 24 11/21/2023 IRON AND TIBC iron 166 ug/dL 38-169 Not Available [facility] ([facility]) [address], [place], [address], 11/25/2023 11:14:08 11/20/19 24 11/21/2023 IRON AND TIBC iron saturation 54 % 15-55 Not Available [facility] ([facility]) [address], [place], [address], 11/25/2023 11:14:08 11/20/19 24 11/21/2023 VITAM IN B12 AND FOLAT E vitamin B12 631 pg/mL 232-12 45 Not Available [facility] ([facility]) [address], [place], [address], 11/25/2023 11:14:09 11/20/19 24 11/21/2023 VITAM IN B12 AND FOLAT E folate (folic acid), serum 6.3 NG/mL >3.0 A serum folat e cruz ntrat ion of less than 3.1 ng/mL is consi dered to repre sent clini dionicio defic iency . Not Available [facility] ([facility]) [address], [place], [address], 11/25/2023 11:14:09 11/20/19 24 11/21/2023 VITAM IN D, 25-HY DROXY vitamin D, 25-hydroxy 51.8 NG/mL 30.0-1 00.0 Vitam in D defic iency has been defin ed by the Insti tute of Medic ine and an Endoc rine Socie ty pract ice guide line as a level of serum 25-OH vitam in D less than 20 ng/mL (1,2) . The Endoc rine Socie ty went on to furth er defin e vitam in D insuf ficie ncy as a level betwe en 21 and 29 ng/mL (2). 1. IOM (Inst itute of Medic ine). 2010. Dieta ry refer ence alli es for calci um and D. Kena billy [place]: The Natio nal [facility] Press . 2. Holic k MF, Estrellita gayle [place], Noreen off-F errar i STORY, et al. Evalu ation , treat ment, and preve ntion of vitam in D defic iency : an Endoc rine Socie ty clini dionicio pract ice guide line. JCEM. 2010; 96(7) :1911 -30. Not Available [facility] ([facility]) [address] [place], [address], 11/25/2023 11:14:09 11/20/19 24 11/25/2023 VITAM IN B1 (THIA MINE) , BLOOD vit. B1, whole blood 115.8 nmol/ L 66.5-2 00.0 Not Available [facility] ([facility]) [address] [place], [address], 11/25/2023 11:14:10 11/20/19 24 11/21/2023 MAGNE SIUM magnesium 2.0 mg/dL 1.6-2. 3 Not Available [facility] ([facility]) [address] [place], [address], 11/25/2023 11:14:10 11/20/19 24 11/21/2023 KARLA TIN ferritin 774 NG/mL 30-400 above high normal Not Available [facility] ([facility]) [address] [place], [address], 11/25/2023 11:14:11 07/15/19 25 07/16/2024 COMP. METAB OLIC PANEL (14) glucose 125 mg/dL 70-99 above high normal Not Available [facility] ([facility]) [address] [place], [address], 07/18/2024 16:11:30 07/15/19 25 07/16/2024 COMP. METAB OLIC PANEL (14) BUN 20 mg/dL 6-24 normal Not Available [facility] ([facility]) [address] [place], [address], 07/18/2024 16:11:30 07/15/19 25 07/16/2024 COMP. METAB OLIC PANEL (14) creatinine 1.00 mg/dL 0.76-1 .27 normal Not Available [facility] ([facility]) [address] [facility] [address], [place], [address], 07/18/2024 16:11:30 07/15/19 25 07/16/2024 COMP. METAB OLIC PANEL (14) eGFR 88 mL/mi n/1.7 3 >59 normal Not Available [facility] ([facility]) [address] [facility] [address], [place], [address], 07/18/2024 16:11:30 07/15/19 25 07/16/2024 COMP. METAB OLIC PANEL (14) BUN/creatini ne ratio 20 9-20 normal Not Available [facility] ([facility]) [address], [place], [address], 07/18/2024 16:11:30 07/15/19 25 07/16/2024 COMP. METAB OLIC PANEL (14) sodium 140 mmol/ L 134-14 4 normal Not Available [facility] ([facility]) [address], [place], [address], 07/18/2024 16:11:30 07/15/19 25 07/16/2024 COMP. METAB OLIC PANEL (14) potassium 4.6 mmol/ L 3.5-5. 2 normal Not Available [facility] ([facility]) [address] [facility] [address], [place], [address], 07/18/2024 16:11:30 07/15/19 25 07/16/2024 COMP. METAB OLIC PANEL (14) chloride 102 mmol/ L 96-106 normal Not Available [facility] ([facility]) [address] [facility] [address], [place], [address], 07/18/2024 16:11:30 07/15/19 25 07/16/2024 COMP. METAB OLIC PANEL (14) carbon dioxide, total 24 mmol/ L 20-29 normal Not Available [facility] ([facility]) [address] [place], [address], 07/18/2024 16:11:30 07/15/19 25 07/16/2024 COMP. METAB OLIC PANEL (14) calcium 9.7 mg/dL 8.7-10 .2 normal Not Available [facility] ([facility]) [address] [place], [address], 07/18/2024 16:11:30 07/15/19 25 07/16/2024 COMP. METAB OLIC PANEL (14) protein, total 7.3 g/dL 6.0-8. 5 normal Not Available [facility] ([facility]) [address] [place], [address], 07/18/2024 16:11:30 07/15/19 25 07/16/2024 COMP. METAB OLIC PANEL (14) albumin 4.2 g/dL 3.8-4. 9 normal Not Available [facility] ([facility]) [address] [place], [address], 07/18/2024 16:11:30 07/15/19 25 07/16/2024 COMP. METAB OLIC PANEL (14) globulin, total 3.1 g/dL 1.5-4. 5 Not Available [facility] ([facility]) [address] [place], [address], 07/18/2024 16:11:30 07/15/19 25 07/16/2024 COMP. METAB OLIC PANEL (14) bilirubin, total 0.6 mg/dL 0.0-1. 2 normal Not Available [facility] ([facility]) [address] [place], [address], 07/18/2024 16:11:30 07/15/19 25 07/16/2024 COMP. METAB OLIC PANEL (14) alkaline phosphatase 100 IU/L 44-121 normal Not Available [facility] ([facility]) [address] [place], [address], 07/18/2024 16:11:30 07/15/19 25 07/16/2024 COMP. METAB OLIC PANEL (14) AST (SGOT) 52 IU/L 0-40 above high normal Not Available [facility] ([facility]) [address] [place], [address], 07/18/2024 16:11:30 07/15/19 25 07/16/2024 COMP. METAB OLIC PANEL (14) ALT (SGPT) 79 IU/L 0-44 above high normal Not Available [facility] ([facility]) [address] [place], [address], 07/18/2024 16:11:30 07/15/19 25 07/16/2024 CBC, PLATE LET, NO DIFFE RENTI AL WBC 6.1 x10e3 /uL 3.4-10 .8 normal Not Available [facility] ([facility]) [address] [place], [address], 07/18/2024 16:11:31 07/15/19 25 07/16/2024 CBC, PLATE LET, NO DIFFE RENTI AL RBC 5.20 x10e6 /uL 4.14-5 .80 normal Not Available [facility] ([facility]) [address] [place], [address], 07/18/2024 16:11:31 07/15/19 25 07/16/2024 CBC, PLATE LET, NO DIFFE RENTI AL hemoglobin 15.4 g/dL 13.0-1 7.7 normal Not Available [facility] ([facility]) [address] [place], [address], 07/18/2024 16:11:31 07/15/19 25 07/16/2024 CBC, PLATE LET, NO DIFFE RENTI AL hematocrit 46.6 % 37.5-5 1.0 normal Not Available [facility] ([facility]) [address] [place], [address], 07/18/2024 16:11:31 07/15/19 25 07/16/2024 CBC, PLATE LET, NO DIFFE RENTI AL MCV 90 fL 79-97 normal Not Available [facility] ([facility]) [address] [place], [address], 07/18/2024 16:11:31 07/15/19 25 07/16/2024 CBC, PLATE LET, NO DIFFE RENTI AL MCH 29.6 pg 26.6-3 3.0 normal Not Available [facility] ([facility]) [address] [place], [address], 07/18/2024 16:11:31 07/15/19 25 07/16/2024 CBC, PLATE LET, NO DIFFE RENTI AL MCHC 33.0 g/dL 31.5-3 5.7 normal Not Available [facility] ([facility]) [address] [place], [address], 07/18/2024 16:11:31 07/15/19 25 07/16/2024 CBC, PLATE LET, NO DIFFE RENTI AL RDW 13.3 % 11.6-1 5.4 Not Available [facility] ([facility]) [address] [place], [address], 07/18/2024 16:11:31 07/15/19 25 07/16/2024 CBC, PLATE LET, NO DIFFE RENTI AL platelets 67 x10e3 /uL 150-45 0 alert low Plate let count verif ied by og murdock of perip heral blood smear . Not Available [facility] ([facility]) [address] [place], [address], 07/18/2024 16:11:31 07/15/19 25 07/16/2024 CBC, PLATE LET, NO DIFFE RENTI AL hematology comments: NOTE: Verif ied by ashley rader Not Available [facility] ([facility]) [address] [facility] [address], [place], [address], 07/18/2024 16:11:31 07/15/19 25 07/16/2024 CBC, PLATE LET, NO DIFFE RENTI AL NRBC ONLINE AFFILIATE MARKETING MANAGER Not Available [facility] ([facility]) [address] [facility] [facility] [address] [facility], [place], [address], 07/18/2024 16:11:31 07/15/19 25 07/16/2024 PROTH ROMBI N TIME (PT), SERIA L INR 1.1 0.9-1. 2 Refer ence inter kimberly is for non-a ntico agula krista patie nts. Sugge sted INR thera peuti c range for Vitam in K antag onist thera py: Stand rahul Dose (mode rate inten sity thera peuti c range ): 2.0 - 3.0 Highe r inten sity thera peuti c range 2.5 - 3.5 Not Available [facility] ([facility]) [address], [place], [address], 07/18/2024 16:11:32 07/15/19 25 07/16/2024 PROTH ROMBI N TIME (PT), SERIA L prothrombin time 11.9 sec 9.1-12 .0 normal Not Available [facility] ([facility]) [address], [place], [address], 07/18/2024 16:11:32 07/15/19 25 07/18/2024 PROTH ROMBI N TIME (PT), SERIA L pdf . Not Available [facility] ([facility]) [address], [place], [address], 07/18/2024 16:11:32 07/15/19 25 07/16/2024 AFP, SERUM , TUMOR MARKE R AFP, serum, tumor marker 5.8 NG/mL 0.0-8. 4 normal Yuki Diagn ostic s Elect yuki milum inesc ence Immun oassa y (ECLI A) Value s obtai ruddy with diffe rent assay metho ds or kits canno t be used inter garcia eably . Resul ts canno t be inter prete d as absol redding evide nce of the prese nce or absen ce of maljaleel nansantosh disea se. This test is not inter preta ble in pregn ant femal es. Not Available [facility] ([facility]) [address], [place], [address], 07/18/2024 16:11:33 10/22/19 23 10/21/2022 US, liver [facility] [facility] [address] [place] [address] Phone: Fax: Name: RUDOLPH ODELL Exam Date: : 967 Age 57 Gender : M Access ion: [id number] Physic marie: BENEDICT JAMA Facili ty: [facility] Facili ty HSV: Outpat ient Exam: LIVER ULTRAS OUND Liver ultras ound Histor y: Cirrho sis Findin gs: The pancre as is normal in size and echoge nicity . Liver demons trates coarse ruddy hetero geneou s echote xture. There is mild hepato megaly . The liver surfac e has a nodula r contou r. The gallbl adder is normal in size. There is no wall thicke robson or shadow ing stones . The right kidney has a normal sonogr aphic apart from an approx imate 3 cm cyst of the lower pole cortex . Impres jane: The appear ance of the liver is compat ible with given histor y. No eviden ce of liver mass. Dictat ed By: BETY BERRY Transc ribed By: BETY BERRY ribed On: 023 3:47 PM Electr onical ly signed by: BETY BERRY 023 Thank you for referr leonarda RUDOLPH ODELL to [facility]. Legall y authen ticate d by SUJATHA ALBERT 10-21 15:47: 26 CC'ed Logic: Orderi ng Provid er: JAMA BENEDICT [place] Attend ing Provid er: JAMA BENEDICT JAROD Referr ing Provid er: JAMA BENEDICT [place] Admitt ing Provid er: JAMA BENEDICT JAROD [email or web address] [facility] [address] [facility], [place], [address], 11/07/2022 14:30:13 06/10/19 24 06/10/2023 US, liver [facility] [address] [place] [address] Phone: Fax: Name: RUDOLPH ODELL Exam Date: 024 : 967 Age 57 Gender : M Access ion: [id number] Physic marie: BENEDICT OLIVERA Facili ty: [facility] Facili ty HSV: Outpat ient Exam: LIVER ULTRAS OUND RIGHT UPPER QUADRA NT ULTRAS OUND HISTOR Y: Right upper quadra nt pain. PROCED URE: Ultras ound images of the right upper quadra nt were obtain ed. FINDIN GS: The pancre as is not well visual ized. The liver has a nodula r contou r sugges tive of cirrho sis. In the right hepati c lobe is an ill-de fined, 1.4 cm hypoec hoic lesion . The gallbl adder is well visual ized and the wall appear s normal . There are no gall stones . The common duct is dilate d measur ing 8 mm. Limite d images of the right kidney are unrema rkable except for a right renal cyst. IMPRES JANE: 1. Nodula r hepati c contou r sugges tive of cirrho sis. Ill-de fined right hepati c lobe lesion . MRI liver mass protoc ol is recomm ended. 2. Mildly dilate d common bile duct. Consid er MRCP. Films review ed , interp reted and dictat ed by Dr.Pop lockwood Transc ribed by Anshu Aparicio PA-C. Dictat ed By: AMALIA SANDERS Transc ribed By: Amalia Sanders Transc ribed On: 1:14 PM Electr onical ly signed by: AMALIA SANDERS Thank you for referr leonarda RUDOLPH ODELL to [facility]. Legall y authen ticate d by POPE AMALIA Corbin 06-10 13:14: 49 CC'ed Logic: Orderi ng Provid er: JAMA BENEDICT JAROD Attend ing Provid er: JAMA BENEDICT JAROD Referr ing Provid er: JAMA BENEDICT [place] Admitt ing Provid er: JAMA BEN[place]ICT [place] [email or web address] [facility] [address] [facility], [place], [address], 06/11/2023 15:50:02 06/17/19 24 06/10/2023 US, liver No observ ation record ed. [facility] [address] [facility], [place], [address], 06/17/2023 16:29:51 07/10/19 24 07/10/2023 CT ABD w/w/O [facility] [address] [place] [address] Phone: Fax: Name: RUDOLPH ODELL Exam Date: : 967 Age 57 Gender : M Access ion: [id number] Physic marie: BENEDICT JAMA Facili ty: [facility] Facili ty HSV: Outpat ient Exam: CT ABD W/W/O CT scan of the abdome n with and withou t contra st. HISTOR Y: Liver lesion . PROCED URE: The patien t was inject ed with 75 ml Isovue . Precon trast images were also obtain ed. Axial images were obtain ed from the lung bases to the iliac crest by comput ed tomogr aphy. FINDIN GS: ABDOME N: The lung bases demons trate basila r atelec tasis. The heart is normal in size. The liver is nodula r and enlarg ed. Correl ate for cirrho sis. In the right hepati c lobe is a 1.5 cm low-de nsity lesion . This demons trates precon trast Hounsf ield units of 15, postco ntrast Hounsf ield units of 30 and delaye d Hounsf ield units of 23. This is indete rminat e. The spleen it is enlarg ed measur ing up to 17.6 cm. There appear to be spleni c varice s. No adrena l mass is presen t. The pancre as is normal . The kidney s demons trate no hydron ephros is. There is a 2.5 cm right renal cyst. There are nonobs tructi ng bilate ral renal stones . The aorta is normal in calibe r. There is athero sclero sis. There is no free fluid or adenop athy. IMPRES JANE: 1. 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 2. Indete rminan t 1.5 cm lesion in the right hepati c lobe. MRI liver mass protoc ol may be benefi cial. 3. Bilate ral nonobs tructi ng renal stones and right renal cyst. Films review ed , interp reted and dictat ed by Dr.Pop lockwood Transc ribed by Anshu Aparicio PA-C. Dictat ed By: AMALIA SANDERS Transc ribed By: Amalia Sanders Transc ribed On: 2:07 PM Electr onical ly signed by: AMALIA SANDERS Thank you for referr RUDOLPH Alvarado to [facility] Legall y authen ticate d by POPE AMALIA Corbin 07-10 14:07: 47 CC'ed Logic: Orderi ng Provid er: JAMA BENEDICT [place] Attend ing Provid er: JAMA [place]ICT [place] Admitt ing Provid er: JAMA BEN[place]ICT [place] [id number] [facility] [address] [facility], [place], [address], 07/23/2023 14:34:45 10/14/19 24 10/13/2023 MRI, liver , w/ contr ast No observ ation record ed. JANET Not Available 2023 15:44:25 10/21/19 24 10/13/2023 MRI, liver , w/wo contr ast No observ ation record ed. [facility] Scheduling [address], [place], [address], 10/26/2023 16:31:24 Result Notes None recorded. Problems Name Problem SNOMED Code Status Onset Date Resolution Date Notes Provider Name and Address Organization Details Recorded Time Bilateral lower limb edema 651440992 Active 2024 Bryant Rogers PA-C [address], [place], [address] , [place] - [facility] - [place] & [place] 5 09:20:56 Ascites 485186963 Active 2024 Bryant Rogers PA-C [address], [place], [address] , [place] [facility] [place] & [place] 5 09:20:56 Hepatic encephalopath y 70051409 Active 2024 Bryant Rogers PA-C [address], [place], [address] , [place] [facility] [place] & [place] 5 09:20:56 Iron deficiency anemia 59029446 Active 2024 Bryant Rogers PA-C [address], [place], [address] , [place] [facility] [place] & [place] 5 09:20:56 Fatigue 12897487 Active 2024 Bryant Rogers PA-C [address], [place], [address] , [place] [facility] [place] & [place] 5 09:20:56 Hand cramps 392274865 Active 2024 Bryant Rogers PA-C [address], [place], [address] , [facility] & [place] 5 09:20:56 Type 2 diabetes mellitus 24574504 Active 2024 Bryant Rogers PA-C [address], [place], [address] , [facility] & [place] 5 16:59:36 Cirrhosis of liver 44235519 Active 2022 Gillian Deras [facility] & [place] 3 14:13:23 History of alcohol abuse 804620190 Active 2022 Bryant Rogers PA-C [address], [place], [address] , [facility] & [place] 3 14:53:42 Problem Notes None recorded. Procedures Surgical History Date Name Laterality Status Provider Name and Address Organization Details Recorded Time 07/15/19 Venip[facility] Gastro [facility] [place] [facility] [place] 07/15/2024 09:57:35 Imaging Results None recorded. Procedure Notes None recorded. Medical Equipment None Reported. Allergies No known drug allergies Medications Name Sig Start Date Stop Date Status Note LastModified by Organization Details LastModified Time cyclobenzap rine 10 mg tablet TAKE 1 TABLET ORALLY THREE TIMES A DAY NEEDED FOR MUSCLE SPASM FOR 5 DAYS active Not Available Not Available No t Available carvedilol 6.25 mg tablet TAKE 1 TABLET (6.25 MG) BY MOUTH 2 (TWO) TIMES A DAY WITH MEALS. active Not Available Not Available No t Available lidocaine 4 % topical patch APPLY 1 PATCH TOPICALLY DAILY MAY LEAVE ON FOR UP TO 12 HRS active Not Available Not Available No t Available hydrocodone 5 mg-acetamin ophen 325 mg tablet TAKE 1 TABLET BY MOUTH EVERY 6 HOURS NEEDED FOR ACUTE PAIN FOR UP TO 3 DAYS active Not Available Not Available No t Available meloxicam 15 mg tablet TAKE 1 TABLET BY MOUTH EVERY DAY 05/20 completed Not Available Not Available Not Available lisinopril 20 mg tablet TAKE 1 TABLET BY MOUTH EVERY DAY active Not Available Not Available No t Available amlodipine 5 mg tablet TAKE 1 TABLET BY MOUTH EVERY DAY active Not Available Not Available No t Available sildenafil 100 mg tablet TAKE 1 TABLET BY MOUTH EVERY DAY NEEDED FOR ERECTILE DYSFUNCTI ON active Not Available Not Available No t Available methocarbam ol 750 mg tablet TAKE 1 TABLET BY MOUTH FOUR TIMES A DAY active Not Available Not Available No t Available baclofen 10 mg tablet TAKE 1 TABLET (10 MG) BY MOUTH IF NEEDED FOR MUSCLE SPASMS (CRAMPING ). TWICE A DAY NEEDED. active Not Available Not Available No t Available lisinopril 20 mg-hydrochl orothiazide 25 mg tablet TAKE 1 TABLET BY MOUTH EVERY DAY active Not Available Not Available No t Available furosemide 20 mg tablet TAKE 1 TABLET BY MOUTH EVERY DAY 2024 active Not Available Not Available Not Avai lable methylpredn isolone 4 mg tablets in a dose pack TAKE 6 TABLETS ON DAY 1 DIRECTED ON PACKAGE AND DECREASE BY 1 TAB EACH DAY FOR A TOTAL OF 6 DAYS active Not Available Not Available No t Available spironolact one 50 mg tablet TAKE 1 TABLET BY MOUTH EVERY DAY 2024 active Not Available Not Available Not Avai lable ezetimibe 10 mg tablet TAKE 1 TABLET BY MOUTH EVERY DAY active Not Available Not Available No t Available cyclobenzap rine 5 mg tablet active Not Available Not Available Not Available Lantus Solostar U-100 Insulin 100 unit/mL (3 mL) subcutaneou s pen active Not Available Not Available Not Available Gavilyte-C 240 gram-22.72 gram-6.72 gram-5.84 gram oral solution DIRECTED ORALLY 8 OZ EVERY 15 MINUTES UNTIL EMPTY 09/12 completed Not Available Not Available Not Available Xifaxan 550 mg tablet Take 1 tablet twice a day by oral route for 30 days. 07/15 completed Not Available Not Available Not Available Repatha Syringe 140 mg/mL subcutaneou s syringe INJECT 1 ML SUBCUTANE OUSLY DIRECTED EVERY 14 DAYS. active Not Available Not Available No t Available Sutab 1.479-0.188 -0.225 gram tablet TAKE DIRECTED 09/12 completed Not Available Not Available Not Available Vitals Date Recorded Body height Body mass index (BMI) Body weight Body temperature Oxygen saturation Oxygen saturation in Arterial blood by Pulse oximetry Heart rate Heart rate Systolic blood pressure Diastolic blood pressure Provider Name and Address Organization Details Last Updated DateTime 5 177.8 cm 29 kg/m2 00453.0 2 g 97.6 [degF] 97 % 97 % 65 /min 67 /min 128 mm[Hg] 86 mm[Hg] Florecita CHICAS [facility] & [place] 5 08:48:20 Date Recorded Body weight Heart rate Systolic blood pressure Diastolic blood pressure Provider Name and Address Organization Details Last Updated DateTime 09/12/2022 32332.36 g 65 /min 158 mm[Hg] 81 mm[Hg] Gillian CHICAS [facility] & [place] 09/12/2022 08:56:10 Date Recorded Body height Body mass index (BMI) Body weight Body temperature Oxygen saturation Oxygen saturation in Arterial blood by Pulse oximetry Heart rate Heart rate Systolic blood pressure Diastolic blood pressure Provider Name and Address Organization Details Last Updated DateTime 4 177.8 cm 29.9 kg/m2 08086.0 1 g 97.5 [degF] 97 % 97 % 65 /min 68 /min 111 mm[Hg] 73 mm[Hg] Romecollette Eric [facility] & [place] 4 08:42:54 Date Recorded Heart rate Systolic blood pressure Diastolic blood pressure Provider Name and Address Organization Details Last Updated DateTime 03/07/2022 74 /min 183 mm[Hg] 91 mm[Hg] Gillian CHICAS [facility] & [place] 03/07/2022 09:19:13 Date Recorded Body weight Body mass index (BMI) Body height Body temperature Heart rate Oxygen saturation Oxygen saturation in Arterial blood by Pulse oximetry Heart rate Systolic blood pressure Diastolic blood pressure Provider Name and Address Organization Details Last Updated DateTime 3 175614. 91 g 31.7 kg/m2 177.8 cm 98.2 [degF] 72 /min 97 % 97 % 73 /min 161 mm[Hg] 85 mm[Hg] Florecita Espinoza [facility] & [place] 3 14:08:34 Social History None recorded. Functional Status None recorded. Mental Status None recorded. Family History Nothing Reported. Medical History No medical history recorded. Immunizations Vaccine Type Date Status Note Provider Nam e and Address Organization Details Recorded Time Hep A, adult 03/07/2022 completed Gillian Deras null, [place] - [facility] [place] & [place] 03/07/2022 09:49:29 Hep B, adult 03/07/2022 completed Gillian Deras null, [place] - [facility] [place] & [place] 03/07/2022 09:51:56 Hep A, adult 09/19/2022 completed Gillian Deras null, [place] - [facility] - [place] & [place] 09/19/2022 08:43:37 Hep B, adult 09/19/2022 completed Gillian Deras null, [place] - [facility] [place] & [place] 09/19/2022 08:44:35 Past Encounters Encounter ID Performer Location Encounter Start Date Encounter Closed Date Diagnosis/Indication Diagnosis SNOMED-CT Code Diagnosis ICD10 Code Diagnosis Note [id number] Brittany Reyes NP [facility] [place] 3942024-[address] 2 03/07/2022 09:02:57 03/07/2022 10:05:24 Cirrhosis of liver 73746582 K74.60 Abdominal mass 043294062 R19.00 [id number] Bryant Rogers PA-C [facility] [place] [id number] 2 09/12/2022 08:41:21 09/12/2022 09:50:02 Cirrhosis of liver 59139822 K74.60 History of polyp of colon 475599675 Z86.010 History of alcohol abuse 376458705 F10.10 [id number] Phillip Toney MD [facility] [address] [address] 05/20/2023 13:34:22 05/20/2023 15:14:45 Cirrhosis of liver 02976631 K74.60 History of polyp of colon 601038552 Z86.010 History of alcohol abuse 640323793 F10.10 Ascites 543047606 R18.8 Hepatic encephalopathy 82145381 K76.82 Bilateral lower limb edema 914776283 R60.0 [id number] Phillip Toney MD [facility] [address] [place] [address] 11/20/2023 08:06:40 11/20/2023 09:22:35 Cirrhosis of liver 04376550 K74.60 History of polyp of colon 340948560 Z86.010 History of alcohol abuse 729272174 F10.10 Ascites 705410202 R18.8 Hepatic encephalopathy 43228733 K76.82 Bilateral lower limb edema 335448982 R60.0 Fatigue 81797868 R53.83 Iron defic iency anemia 77560012 D50.9 Hand cramps 285741367 R2 5.2 [id number] Bryant Rogers PA-C [facility] [address] [place] [address] 07/15/2024 08:27:38 07/15/2024 09:56:16 Cirrhosis of liver 85953164 K74.60 History of polyp of colon 174521676 Z86.0100 Type 2 valorie betes mellitus 53164764 E11.9 Health Concerns Section Related Observation LastModified by Organization Detai ls LastModified Time None Recorded Concern Status LastModified by Organization Details LastModified Time None Recorded Advance Directives Directive None Recorded Payers Insurance Date Sequence Insurance Name Policy Number Policy Puente Covered Member ID Puente Member ID Guarantor Name 07/18/2024 1 [place] [id number] 1 Rudolph Odell [id number] Rudolph Odell 07/15/2024 1 [facility] Rudolph Odell [id number] Rudolph Odell Notes Date Note Type Note Provider Name and Address Organization Details Recorded Time 03/07/2022 text/html PREVIOUS-Mr. Yaya phillips is here today for cirrhosis labs follow-up. Denies abdominal or hematemesis. Denies peripheral edema or abdominal swelling. Denies seizures or memory issues. Reports he has been trying to follow a 2 g sodium restrictive diet has increased his exercise and stopped drinking alcohol entirely. Reports overall he feels well; however reports chronic fatigue. 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 Patient would like to review his cirrhosis diagnosis. Reports he did notice some abdominal swelling. Denies nausea, vomiting or hematemesis. Denies diarrhea or constipation. Denies dysphagia or hematachezia. Reports he has stopped drinking alcohol completely. Reports difficulty sleeping. Denies confusion or peripheral edema. Brittany Reyes NP [address], [place], [address], [facility] & [place] 03/07/2022 15:26:25 09/12/2022 text/html PREVIOUS-Mr. Yaya phillips is here today for cirrhosis labs follow-up. Denies abdominal or hematemesis. Denies peripheral edema or abdominal swelling. Denies seizures or memory issues. Reports he has been trying to follow a 2 g sodium restrictive diet has increased his exercise and stopped drinking alcohol entirely. Reports overall he feels well; however reports chronic fatigue. 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 PREVIOUS (03/07/22) Patient is here today for follow up. Patient would like to review his cirrhosis diagnosis. Reports he did notice some abdominal swelling. Denies nausea, vomiting or hematemesis. Denies diarrhea or constipation. Denies dysphagia or hematochezia. Reports he has stopped drinking alcohol completely. Reports difficulty sleeping. Denies confusion or peripheral edema. CURRENT (09/12/22): Mr. 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 He reports his last drink was 05/2021. He also reports a family history of fatty liver disease. He denies any memory or confusion issues. He does report some mild lower extremity edema that usually resolves at night. 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 He reports his diet is not particularly health as he eats snack foods that are easily accessible and drinks 3-4 mountain dews daily. Bryant Rogers PA-C [address], [place], [address], [facility] & [place] 09/12/2022 14:54:03 05/20/2023 text/html PREVIOUS-Mr. Yaya phillips is here today for cirrhosis labs follow-up. Denies abdominal or hematemesis. Denies peripheral edema or abdominal swelling. Denies seizures or memory issues. Reports he has been trying to follow a 2 g sodium restrictive diet has increased his exercise and stopped drinking alcohol entirely. Reports overall he feels well; however reports chronic fatigue. 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 PREVIOUS (03/07/22 Tanna Reyes) Patient is here today for follow up. Patient would like to review his cirrhosis diagnosis. Reports he did notice some abdominal swelling. Denies nausea, vomiting or hematemesis. Denies diarrhea or constipation. Denies dysphagia or hematochezia. Reports he has stopped drinking alcohol completely. Reports difficulty sleeping. Denies confusion or peripheral edema. PREVIOUS (09/12/22 Linda Rogers): Mr. 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 He reports his last drink was 05/2021. He also reports a family history of fatty liver disease. He denies any memory or confusion issues. He does report some mild lower extremity edema that usually resolves at night. 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 He reports his diet is not particularly healthy as he eats snack foods that are easily accessible and drinks 3-4 mountain dews daily. CURRENT (05/20/23 Evan Jama): Mr. 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 He has continued to abstain from alcohol. His last drink was May 2021. He does report some fatigue and mild short-term memory issues. He also reports lower extremity edema that resolves at night. He denies nausea, vomiting, hematemesis, hematochezia, melena and NSAID use. ADITYA JAMA MSN, PHOTOGRAPHY INTERN, [employer] [address] [facility], [place], [address], [facility] - [facility] - [place] & [place] 05/21/2023 11:02:49 11/20/2023 text/html PREVIOUS-Mr. Yaya phillips is here today for cirrhosis labs follow-up. Denies abdominal or hematemesis. Denies peripheral edema or abdominal swelling. Denies seizures or memory issues. Reports he has been trying to follow a 2 g sodium restrictive diet has increased his exercise and stopped drinking alcohol entirely. Reports overall he feels well; however reports chronic fatigue. 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 PREVIOUS (03/07/22 Tanna Reyes) Patient is here today for follow up. Patient would like to review his cirrhosis diagnosis. Reports he did notice some abdominal swelling. Denies nausea, vomiting or hematemesis. Denies diarrhea or constipation. Denies dysphagia or hematochezia. Reports he has stopped drinking alcohol completely. Reports difficulty sleeping. Denies confusion or peripheral edema. PREVIOUS (09/12/22 Linda Rogers): Mr. 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 He reports his last drink was 05/2021. He also reports a family history of fatty liver disease. He denies any memory or confusion issues. He does report some mild lower extremity edema that usually resolves at night. 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 He reports his diet is not particularly healthy as he eats snack foods that are easily accessible and drinks 3-4 mountain dews daily. PREVIOUS (05/20/23 Evan Jama): Mr. 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 He has continued to abstain from alcohol. His last drink was May 2021. He does report some fatigue and mild short-term memory issues. He also reports lower extremity edema that resolves at night. He denies nausea, vomiting, hematemesis, hematochezia, melena and NSAID use. CURRENT (11/20/23 Evan Jama): Mr. Odell presents to the clinic today for follow up of alcoholic cirrhosis. Liver ultrasound after last office visit 06/10/23 showed right hepatic lesion, recommended CT follow up. Subsequent CT abdomen on 06/30/23 revealed right hepatic lesion without further classification and recommended MRI. The patient was unsure if he could have an MRI due to previous surgery with possible metal placement. He did follow up with his doctor and was cleared to have MRI. MRI on 10/13/23 showed 2 subtle areas of hypoenhancement nonspecific imaging characteristics with benign and malignant etiologies possible. Recommend follow-up liver MRI in 3-6 months. He was referred to [facility] for further evaluation. He saw [facility] on 11/17/2023. MELD-Na was 8 at their visit on 11/17/23. They recommend repeat MRI in 3 months. The patient presents to the clinic today complaining of his hands cramping and drawing up, worse in the mornings. He also complains of continued fatigue. Labs were checked with liver transplant on 11/17/2023 which showed normal electrolytes. The patient continues spironolactone 50 mg p.o. once daily and furosemide 20 mg p.o. once daily. He denies any ascites, lower extremity edema, memory/confusion issues, nausea, vomiting, abdominal pain, hematemesis, hematochezia or melena. ADITYA JAMA MSN, PHOTOGRAPHY INTERN, [employer] [address], [place], [address], [facility] & [place] 11/20/2023 12:02:39 07/15/2024 text/html Mr. Odell is a 58-year-old male with history of alcoholic cirrhosis who presents to the office today for follow-up. He was previously established with the liver transplant clinic, but was not listed due to low MELD. He was referred to hepatology for ongoing monitoring. He presents today stating that he was seen in the [facility] ED 2 weeks ago with fatigue and was found to have a serum glucose over 600 and was told his liver enzymes were high. I do not have those records available currently. He notes he has been taking steroid injections for chronic low back pain/vertebral disc issue. He was told this may have caused his lab abnormality. Aside from his back pain, he is doing okay overall. His last drink was 05/2021. He has stopped smoking. He denies leg swelling, abdominal distension, confusion, or forgetfulness. 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 He has started long acting insulin once daily due to new diabetes diagnosis. He reports his A1c was 11.8%. Bryant Rogers PA-C [address], [place], [address], [facility] & [place] 07/15/2024 17:01:08
--- OUTSIDE RECORDS SUMMARY | 2024-11-16 10:45 | XMS_ITS | Encounter Summary ---
Author Organization [facility] [address] Care Team Providers Care Director Transition Name Role Phone Rene Salinas Primary Care Provider [phone] Reason for Visit * Reason Comments Medication Refill Encounter Details Date Type Department Care Team (Late st Contact Info) Description 11/09/2024 Refill [facility] [place] [address] [facility] [address] [place] [address] Travis Lopez MD [address] [place], [place] [id number] Medication Refill Social History Tobacco Use Types [...] Lilian Hernández RN documented in this encounter Ordered Prescriptions Prescription Sig Dispense Quantity Refills Last Filled Start Date End Date sildenafiL (VIAGRA) 100 mg Oral Tablet TAKE 1 TABLET BY MOUTH EVERY DAY NEEDED FOR ERECTILE DYSFUNCTION 6 Tablet 8 11/10/2024 documented in this encounter Plan of Treatment Upcoming Encounters Date Type Department Care Team (Late st Contact Info) Description 01/13/2025 9:30 AM EDT Office [place] [address] Travis Lopez MD [address] [place] [address] documented as of this encounter Goals Goal Patient Goal Type Associated Problems Recent Progress Patient-Stated? Author Blood Pressure < 140/90 Blood Pressure 124/80(2023 7:56 AM EST) Laura Oliva Maintain a healthy diet, exercise regularly and maintain an ideal body weight General Laura Oliva Stay Tobacco Free Lifestyle Laura Oliva documented as of this encounter Visit Diagnoses Not on filedocumented in this encounter Discontinued Medications Medication Sig Discontinue Reason Start Date End Da te sildenafiL (VIAGRA) 100 mg Oral Tablet TAKE 1 TABLET BY MOUTH EVERY DAY NEEDED FOR ERECTILE DYSFUNCTION 10/09/2023 11/10/2024 documented as of this encounter Care Teams Director Transition Relationship Specialty Start Date End Date Rene Salinas [address] [place] [facility] [address] [place] [address] PCP - General Family Medicine 11/08/14 documented as of this encounter
--- OUTSIDE RECORDS SUMMARY | 2024-11-16 10:45 | XMS_ITS | Clinical Summary ---
Author Organization [facility] Address [address] [place] [address] Care Team Providers Care Client Experience Specialist Name Role Phone Faisal Dickinson MD Unavailable [phone] Allergies No known active allergies Medications lisinopriL (PRINIVIL, ZESTRIL) 20 mg tablet Take by mouth daily. 2 Active ezetimibe (ZETIA) 10 mg Tablet Take 10 mg by mouth daily. 2 Active atorvastatin calcium (ATORVASTATIN PO) Take 1 Tablet by mouth. Active meloxicam-irrit ant,cntr irr 2 15 mg Kit Take by mouth daily. 2 Active sildenafiL (VIAGRA) 100 mg Tablet TAKE 1 TABLET BY MOUTH EVERY DAY NEEDED FOR ERECTILE DYSFUNCTION 2 Active Family History Medical History Relation Name Comments Diabetes Father Heart Problems Father Relation Name Status Comments Father Social History Tobacco Use Types Packs/Day Years Used Date Smoking Tobacco: Every Day Cigarettes Smokeless Tobacco: Never Tobacco Cessation:Ready to Q uit: Not Asked; Counseling Given: Not Answered Alcohol Use Standard Drinks/Week Comments Not Currently 0 (1 standard drink = 0.6 oz pur e alcohol) Sex and Gender Information Value Date Recorded Sex Assigned at Not on file Legal Sex Male 1:50 PM EST Gender Identity Not on file Sexual Orientation Not on file Last Filed Vital Signs Vital Sign Reading Time Taken Comments Blood Pressure - - Pulse - - Temperature - - Respiratory Rate - - Oxygen Saturation - - Inhaled Oxygen Concentration - - Weight 93.9 kg (207 lb) 05/06/2022 3:04 PM EST Height 177.8 cm (5' 10 ) 05/06/2022 3:04 PM EST Body Mass Index 29.7 05/06/2022 3:04 PM EST Plan of Treatment Not on file Insurance [facility] Care Teams Client Experience Specialist Relationship Specialty Start Date End Date Faisal Dickinson MD Orthopedic Surgery 05/06/22
--- OUTSIDE RECORDS SUMMARY | 2024-11-16 10:45 | XMS_ITS | Encounter Summary ---
Author Organization [place] [address] Care Team Providers Care Sharepoint Designer Developer Name Role Phone Rene Salinas Primary Care Provider [phone] Reason for Visit * Reason Comments Medication Refill Encounter Details Date Type Department Care Team (Late st Contact Info) Description 11/09/2024 Refill [facility] [place] [address] [place] [address] Travis Lopez MD [address] [place] [address] Medication Refill Social History Tobacco Use Types [...] encounter Miscellaneous Notes * Telephone Encounter - Sharri Costa CPhT - 11/10/2024 12:23 PM EDT lisinopril-hctz Refill request deferred to the office: Medication discontinued or inactive on the medication list documented in this encounter Plan of Treatment Upcoming Encounters Date Type Department Care Team (Late st Contact Info) Description 01/13/2025 9:30 AM EDT [place] [address] Travis Lopez MD [address] [place] [address] documented as of this encounter Goals Goal Patient Goal Type Associated Problems Recent Progress Patient-Stated? Author Blood Pressure < 140/90 Blood Pressure 124/80(2023 7:56 AM EST) Laura Oliva Maintain a healthy diet, exercise regularly and maintain an ideal body weight General Laura Oliva Stay Tobacco Free Lifestyle Laura Oliva documented as of this encounter Visit Diagnoses Not on filedocumented in this encounter Care Teams Sharepoint Designer Developer Relationship Specialty Start Date End Date Rene Salinas [facility] [address] [place] [address] PCP - General Family Medicine 11/08/14 documented as of this encounter
--- OUTSIDE RECORDS SUMMARY | 2024-11-16 10:45 | XMS_ITS | Encounter Summary ---
Author Organization [facility] Address [address] [place] [address] Care Team Providers Care Tank Truck Engine Mechanic Name Role Phone Mya Yusuf APRN Unavailable Maximino Salinas MD Primary Care Provider [phone] Encounter Details Date Type Department Care Team ([facility] st Contact Info) Description 06/10/2023 Orders Only External Location [address] [place] [address] Provider, External Social History Tobacco Use Types Packs/Day Years Used Date Smoking Tobacco: Never Assessed Sex and Gender Information Value Date Recorded Sex Assigned at Not on file Legal Sex Male 8:48 PM EDT Gender Identity Not on file Sexual Orientation Not on file documented as of this encounter Plan of Treatment Not on file documented as of this encounter Procedures Procedure Name Priority Date/Time Associated Diagnosis Comments US ABDOMEN OUTSIDE IMAGES 06/10/2023 11:15 AM EST documented in this encounter Results * US ABDOMEN OUTSIDE IMAGES (06/10/2023 11:15 AM EST) Anatomical Region Laterality Modality Ultrasound 06/10/2023 11:1 5 AM EST us External Provider IMG US PROCEDURES Final Result documented in this encounter Visit Diagnoses Not on filedocumented in this encounter Care Teams Tank Truck Engine Mechanic Relationship Specialty Start Date End Date Maximino Salinas MD [address] [place] [address] PCP - General 10/29/23 Mya Yusuf APRN [address] [facility] [address] [place] [address] Referring Physician Gastroenterology 10/23/23 documented as of this encounter
--- OUTSIDE RECORDS SUMMARY | 2024-11-16 10:45 | XMS_ITS | Encounter Summary ---
Author Organization [place] [address] Care Team Providers Care Underground Electrician Name Role Phone Rene Salinas Primary Care Provider [phone] Reason for Visit * Reason Comments Medication Refill Encounter Details Date Type Department Care Team (Late st Contact Info) Description 11/06/2024 Refill [facility] [place] [address] [place] [address] Travis Lopez MD [address] [place] [address] Medication Refill Social History Tobacco Use Types [...] encounter Miscellaneous Notes * Telephone Encounter - Radha Kerr CPhT - 11/08/2024 8:10 AM EDT Evolocumab 140mg - Refill requested too soon. Refill denied. Last sent on 07-19-24 for a 90 day supply with 1 refills. Pt notified via [employer] if active. documented in this encounter Plan of Treatment Upcoming Encounters Date Type Department Care Team (Late st Contact Info) Description 01/13/2025 9:30 AM EDT [place] [address] Travis Lopez MD [address] [place] [address] documented as of this encounter Goals Goal Patient Goal Type Associated Problems Recent Progress Patient-Stated? Author Blood Pressure < 140/90 Blood Pressure 124/80(2023 7:56 AM EST) Laura Oliva Maintain a healthy diet, exercise regularly and maintain an ideal body weight General No Laura Frost Stay Tobacco Free Lifestyle Laura Oliva documented as of this encounter Visit Diagnoses Diagnosis Pure hypercholesterolemia Myalgia due to statin documented in this encounter Care Teams Underground Electrician Relationship Specialty Start Date End Date Rene Salinas [address] [place] [facility] [address] [place] [address] PCP - General Family Medicine 11/08/14 documented as of this encounter
--- OUTSIDE RECORDS SUMMARY | 2024-11-16 10:45 | XMS_ITS | Clinical Summary ---
Author Organization [facility] Address [address] [place] [address] Phone Care Team Providers Care Travel Information Center Supervisor Name Role Phone User, Super Unavailable Conditions or Problems Problem Name Problem Code Onset Date Status Entry Date Provider Comment Standard Description Annotate LUMBAR RADICULOPATHY 289525959 (SNOMED CT) Active Ashley Emery MA Lumbar radiculopathy LOW BACK PAIN (LBP) 280861873 (SNOMED CT) Active Ashley Emery MA Low back pain Medications Medication Instructions Start Date Stop Date Generic Name [facility] Provider REPATHA 140 MG/ML SOSY evolocumab 58136253653 Ashley Emery MA EZETIMIBE 10 MG TABS ezetimibe 214539001 09 Ashley Emery MA METHYLPREDNISOLONE 4 MG TBPK methylprednisolone 60270092468 Erasto Emery MA FUROSEMIDE 20 MG TABS furosemide 95548816576 Ashley Emery MA LISINOPRIL-HYDROCHLO ROTHIAZIDE 20-25 MG TABS lisinopril-hydro chl orothiazide 19848186854 Ashley Emery MA METHOCARBAMOL 750 MG TABS methocarbamol 64754109248 Ashley Emery MA CYCLOBENZAPRINE HCL 10 MG TABS cyclobenzaprine 91374522857 Ashley Emery MA SPIRONOLACTONE 50 MG TABS spironolactone 19299843416 Ashley Emery MA SILDENAFIL CITRATE 100 MG TABS sildenafil 49288511163 Ashley Emery MA HYDROCODONE-ACETAMIN OPHEN 5-325 MG TABS hydrocodone- acetami nophen 81503470676 Ashley Emery MA LIDOCAINE PAIN RELIEF MAX ST 4 % PTCH lidocaine 96454386125 Ashley Rupert MA Medications Administered No information available. Allergies, Adverse Reactions, Alerts Observed no known allergies at Results No information available. Plan of Care Type Date Detail Pending order HUSAM x 1 therapeu tic injection & follow up with ordering MD Procedures No information available. Vital Signs Date Name Value Unit Description BMI (Body Mass Index) 30.40 kg/m2 Bod y Mass Index (Ratio) Height 71 [in_us] height E&M Weight Measured 218 [lb_av] weight E& M Weight Measured 218 [lb_av] weight E& M Immunizations No information available. Advance Directives No information available.
--- OUTSIDE RECORDS SUMMARY | 2024-11-16 10:45 | XMS_ITS | Encounter Summary ---
Author Organization [facility] Address [address] [place] [address] Care Team Providers Care Car Body Designer Name Role Phone Mya Yusuf APRN Unavailable Maximino Salinas MD Primary Care Provider [phone] Encounter Details Date Type Department Care Team ([facility] st Contact Info) Description 10/21/2022 Orders Only External Location [address] [place] [address] Provider, External Social History Tobacco Use Types [...] Associated Diagnosis Comments US ABDOMEN OUTSIDE IMAGES 10/21/2022 1:40 PM EDT documented in this encounter Results * US ABDOMEN OUTSIDE IMAGES (10/21/2022 1:40 PM EDT) Anatomical Region Laterality Modality Ultrasound 10/21/2022 1:40 PM EDT us External Provider IMG US PROCEDURES Final Result documented in this encounter Visit Diagnoses Not on filedocumented in this encounter Care Teams Car Body Designer Relationship Specialty Start Date End Date Maximino Salinas MD [address] [place], [place] [address] PCP - General 10/29/23 Mya Yusuf APRN [address] [facility] [address] [place] [address] Referring Physician Gastroenterology 10/23/23 documented as of this encounter
--- OUTSIDE RECORDS SUMMARY | 2024-11-16 10:45 | XMS_ITS | Encounter Summary ---
Author Organization [facility] Address [address] [place] [address] Care Team Providers Care Seamless Tube Mill Operator Name Role Phone Mya Yusuf APRN Unavailable Maximino Salinas MD Primary Care Provider [phone] Encounter Details Date Type Department Care Team ([facility] st Contact Info) Description 07/10/2023 Orders Only External Location [address] [place] [address] Provider, External Social History Tobacco Use Types [...] Procedure Name Priority Date/Time Associated Diagnosis Comments CT ABDOMEN OUTSIDE IMAGES 07/10/2023 1:27 PM EST documented in this encounter Results * CT ABDOMEN OUTSIDE IMAGES (07/10/2023 1:27 PM EST) Anatomical Region Laterality Modality Computed Tomogra phy 07/10/2023 1:27 PM EST us External Provider IMG CT PROCEDURES Final Result documented in this encounter Visit Diagnoses Not on filedocumented in this encounter Care Teams Seamless Tube Mill Operator Relationship Specialty Start Date End Date Maximino Salinas MD [address] [place], [place] [address] PCP - General 10/29/23 Mya Yusuf APRN [address] [place] [address] Referring Physician Gastroenterology 10/23/23 documented as of this encounter
--- OUTSIDE RECORDS SUMMARY | 2024-11-16 10:45 | XMS_ITS | Encounter Summary ---
Author Organization [facility] Address [address] [place] [address] Care Team Providers Care Decorating Machine Operator Name Role Phone Mya Yusuf APRN Unavailable Maximino Salinas MD Primary Care Provider [phone] Encounter Details Date Type Department Care Team ([facility] st Contact Info) Description 10/13/2023 Orders Only External Location [address] [place] [address] Provider, External Social History Tobacco Use Types [...] Procedure Name Priority Date/Time Associated Diagnosis Comments MR OUTSIDE IMAGES 10/13/2023 9:34 AM EDT documented in this encounter Results * MR transfer of outside films (10/13/2023 9:34 AM EDT) Anatomical Region Laterality Modality Magnetic Resonan ce 10/13/2023 9:34 AM EDT us External Provider IMG MRI PROCEDURES Final Resul t documented in this encounter Visit Diagnoses Not on filedocumented in this encounter Care Teams Decorating Machine Operator Relationship Specialty Start Date End Date Maximino Salinas MD [address] [place], [place] [address] PCP - General 10/29/23 Mya Yusuf APRN [address] [place] [address] Referring Physician Gastroenterology 10/23/23 documented as of this encounter
--- OUTSIDE RECORDS SUMMARY | 2024-11-16 10:46 | XMS_ITS | Clinical Summary ---
Author Organization Healthcare Address [address] [place] [address] Care Team Providers Care Supervisor Drawing Name Role Phone Mya Yusuf HANNAH Unavailable Maximino Salinas MD Primary Care Provider [phone] Allergies No known active allergies Medications cholecalciferol (Vitamin D-3) 50 MCG (1999 UT) capsule Take 5,000 Units by mouth 1 (one) time each day. Active furosemide (Lasix) 20 MG tablet Take 1 tablet (20 mg) by mouth Daily. Active spironolactone (Aldactone) 50 MG tablet Take 1 tablet (50 mg) by mouth Daily. Active Aspirin 81 MG capsule Take 81 mg by mouth 1 (one) time each day. Active ezetimibe (Zetia) 10 MG tablet Take 1 tablet (10 mg) by mouth 1 (one) time each day. Active alpha tocopherol (Vitamin E) 400 units capsule Take 1 capsule (400 Units) by mouth 1 (one) time each day. Active MAGNESIUM PO Take 250 mg by mouth 1 (one) time each day. Active sildenafil (Viagra) 100 MG tablet Take 0.5 tablets (50 mg) by mouth if needed. 10/09/2023 Active baclofen (Lioresal) 10 MG tablet Take 1 tablet (10 mg) by mouth every 12 hours as needed for muscle spasms. 60 tablet 2 07/18/2024 Active carvedilol (Coreg) 6.25 MG tablet TAKE 1 TABLET (6.25 MG) BY MOUTH 2 (TWO) TIMES A DAY WITH MEALS. 180 tablet 1 09/02/2024 Active Active Problems Problem Noted Date Diagnosed Date Decompensation of cirrhosis of liver 01/15/2024 Liver lesion 01/15/2024 long-term current use of diuretic 01/15/2024 Alcohol use disorder in remission 01/15/2024 Resolved Problems Problem Noted Date Diagnosed Date Resolved Date Hepatic encephalopathy 01/15/202401/14 Encounters Date Type Department Care Team Description 09/01/2024 Refill [facility] [address] [place] [phone] Gail Prieto, HANNAH from Last 3 Months Immunizations Immunization Administration Dates Next Due HepB-CpG 04/15/2024,01/15/2024 Family History Medical History Relation Name Comments Diabetes Father Heart disease Father Hypertension, benign Father Lung disease Mother Cirrhosis Sister hepatic steatosis Sister Relation Name Status Comments Father Mother Sister Social History Tobacco Use Types Packs/Day Years Used Date Smoking Tobacco: Every Day Cigarettes 1.5 38.5 Started: 1986 Smokeless Tobacco: Never Tobacco Cessation:Ready to Q uit: Not Asked; Counseling Given: Not Answered Alcohol Use Standard Drinks/Week Comments Not Currently 0 (1 standard drink = 0.6 oz pure alcohol) binge drinking on weekend, stopped 3 years ago PHQ-2 Answer Date Recorded Patient Health Questionnaire-2 Score 0 04/15/2024 PHQ-9 Answer Date Recorded Patient Health Questionnaire-9 Score 6 04/15/2024 Sex and Gender Information Value Date Recorded Sex Assigned at Not on file Legal Sex Male 8:48 PM EDT Gender Identity Not on file Sexual Orientation Not on file Last Filed Vital Signs Vital Sign Reading Time Taken Comments Blood Pressure 134/85 04/15/2024 7:29 AM EST Pulse 77 04/15/2024 7:29 AM EST Temperature 36.5 C (97.7 F) 04/15/2024 7:29 AM EST Respiratory Rate 18 04/15/2024 7:29 AM EST Oxygen Saturation 95% 04/15/2024 7:29 AM EST Inhaled Oxygen Concentration - - Weight 93.4 kg (205 lb 14.6 oz) 04/15/2024 7:29 AM EST Height 177.8 cm (5' 10 ) 04/15/2024 7:29 AM EST Body Mass Index 29.54 04/15/2024 7:29 AM EST Plan of Treatment Health Maintenance Due Date Last Done Comments [facility]-HIV Screening 1966 [facility]-Infant/Child/Adol SDOH Screenings 1966 [facility]- SDOH Screenings 1984 [facility]-Adult SDOH Screenings 1984 [facility]-DTaP,Tdap,and Td Vaccines (1 - Tdap) 1985 CT Colonography 10/06/2011 Colonoscopy 10/06/2011 FIT-DNA 10/06/2011 FIT 10/06/2011 FOBT 10/06/2011 Sigmoidoscopy 10/06/2011 [facility]-Colorectal Cancer Screening 10/06/2011 [facility]-Pneumococcal Vaccine: 50+ Years (2 of 2 - PCV) 04/19/2015 04/19/2014 [facility]-Zoster Vaccines (1 of 2) 2016 [id number] Vaccine (1 - season) 2024 [facility]-Influenza Vaccine (Season Ended) 2025 04/19/2014 [facility]-Depression Screening 04/15/2025 04/15/2024, 03/26 [facility]-Lung Cancer Screening 04/15/2025 04/15/2024 [facility]-Hepatitis A Vaccines Completed 023, 03/07/2022, 08/16/2021 [facility]-Hepatitis C Screening Completed 11/17/2023 [facility]-Hepatitis B Vaccines Completed 024, 01/15/2024, 09/19/2022, Additional history exists [facility]-Obesity Intervention Completed 024, 01/15/2024, 11/17/2023 HPV Vaccines Aged Out No longer eligi ble based on patient's age to complete this topic [facility]-HIB Vaccines Aged Out No longer e ligible based on patient's age to complete this topic [facility]-IPV Vaccines Aged Out No longer e ligible based on patient's age to complete this topic [facility]-Rotavirus Vaccines Aged Out No lo nger eligible based on patient's age to complete this topic Procedures Procedure Name Priority Date/Time Associated Diagnosis Comments CT CHEST WO IV CONTRAST Routine 04/15/2024 9:34 AM EST End-stage liver disease (CMS/HCC) HEPATITIS C ANTIBODY W/REFLEX TO HCV QUANT PCR Routine 11/17/2023 6:29 AM EDT End-stage liver disease (CMS/HCC) from Last 3 Months or Most Recently Relevant to Health Maintenance Results * CT CHEST WO IV CONTRAST (04/15/2024 9:34 AM EST) Anatomical Region Laterality Modality Chest Computed Tomogra phy Impressions 04/15/2024 9:59 AM EST No acute pulmonary process. Nonspecific tiny bilateral pulmonary nodules CRITICAL RESULT: No. COMMUNICATION: Per this written report.. Drafted by Henrietta Soriano MD on 04/15/2024 9:54 AM Final report signed by Henrietta Soriano MD on 04/15/2024 9:59 AM Narrative 04/15/2024 9:59 AM EST CLINICAL INDICATION: Liver Transplant evaluation TECHNIQUE: Imaging of the chest was performed from thoracic inlet through upper abdomen, using spiral technique, without administration of IV contrast. Reformatted images in the coronal and sagittal planes were generated from the axial data set to facilitate diagnostic accuracy. Total DLP (Dose-Length Product): 515.88 mGy.cm. Please note: The reported value represents the total of one or more individual components during the CT acquisition on this date and at this time, and as such, the same value may appear in more than one CT report depending on the interpreting/reporting physicians. COMPARISON: CT abdomen from 07/10/2023 FINDINGS: Chest: Lack of IV contrast limits evaluation of thoracic organs and vessels. Aorta/Vessels: The thoracic aorta and coronary arteries are atherosclerotic. Pleural/Pericardial Space: No pneumothorax. No pleural effusions. No pericardial effusion. Lymph Nodes: No lymphadenopathy within the chest. Lungs: Diffuse bilateral upper lobe predominant emphysema. No focal consolidation. A 3 mm lingular nodule (series 2 image 73) and right lower lobe nodule (series 2 image 83) are nonspecific. Mediastinum: Otherwise unremarkable. Chest Wall: Mild gynecomastia Bones: Advanced degenerative change in the spine Upper Abdomen: Cirrhosis with mild splenomegaly. A 1.6 cm hypodensity in the left hepatic lobe (series 2 image 118) is stable in size compared to prior CT from 07/10/2023. Procedure Note Henrietta Soriano MD - 04/15/2024 CLINICAL INDICATION: Liver Transplant evaluation TECHNIQUE: Imaging of the chest was performed from thoracic inlet through upperabdomen, using spiral technique, without administration of IV contrast.Reformatted images in the coronal and sagittal planes were generated fromthe axial data set to facilitate diagnostic accuracy. Total DLP (Dose-Length Product): 515.88 mGy.cm. Please note: The reportedvalue represents the total of one or more individual components during theCT acquisition on this date and at this time, and as such, the same valuemay appear in more than one CT report depending on theinterpreting/reporting physicians. COMPARISON: CT abdomen from 07/10/2023 FINDINGS: Chest: Lack of IV contrast limits evaluation of thoracic organs and vessels. Aorta/Vessels: The thoracic aorta and coronary arteries areatherosclerotic. Pleural/Pericardial Space: No pneumothorax. No pleural effusions. Nopericardial effusion. Lymph Nodes: No lymphadenopathy within the chest. Lungs: Diffuse bilateral upper lobe predominant emphysema. No focalconsolidation. A 3 mm lingular nodule (series 2 image 73) and right lowerlobe nodule (series 2 image 83) are nonspecific. Mediastinum: Otherwise unremarkable. Chest Wall: Mild gynecomastia Bones: Advanced degenerative change in the spine Upper Abdomen: Cirrhosis with mild splenomegaly. A 1.6 cm hypodensity inthe left hepatic lobe (series 2 image 118) is stable in size compared toprior CT from 07/10/2023. IMPRESSION: No acute pulmonary process. Nonspecific tiny bilateral pulmonary nodules CRITICAL RESULT: No. COMMUNICATION: Per this written report.. Drafted by Henrietta Soriano MD on 04/15/2024 9:54 AM Final report signed by Henrietta Soriano MD on 04/15/2024 9:59 AM us Jadon Caballero MD IMG CT PROCEDURES Final Result * Hepatitis C Antibody (11/17/2023 6:29 AM EDT) Hepatitis C Antibody Negative Negative 11/17/2023 7:54 AM EDT [facility] Blood Venous blood specimen / Unknown Venipuncture / Unknown 11/17/2023 6:29 AM EDT 11/17/2023 7:11 AM EDT us Jadon Caballero MD LAB BLOOD ORDERABLES Final Resul t [facility] [address] [place] [address] from Last 3 Months or Most Recently Relevant to Health Maintenance Insurance ANTHEM ANTHEM Care Teams Supervisor Drawing Relationship Specialty Start Date End Date Maximino Salinas MD [address] [place] [address] PCP - General 10/29/23 Mya Yusuf APRN [address] [place] [address] Referring Physician Gastroenterology 10/23/23
--- OUTSIDE RECORDS SUMMARY | 2024-11-16 10:46 | XMS_ITS | Encounter Summary ---
Author Organization [facility] [address] Care Team Providers Care Power Electronics Research Engineer Name Role Phone Rene Salinas Primary Care Provider [phone] Reason for Visit * Reason Comments Medication Refill Encounter Details Date Type Department Care Team (Late st Contact Info) Description 11/06/2024 Refill [facility] [address] [place] [address] Travis Lopez MD [address] [place] [address] Medication Refill Social History Tobacco Use Types [...] Encounter - Radha Kerr CPhT - 11/08/2024 8:06 AM EDT Lisinopril/Hctz 20/25mg - Refill request deferred to the office: Medication discontinued or inactive on the medication list documented in this encounter Plan of Treatment Upcoming Encounters Date Type Department Care Team (Late st Contact Info) Description 01/13/2025 9:30 AM EDT Office [place] [address] Travis Lopez MD [address] [place] [address] documented as of this encounter Goals Goal [...] on filedocumented in this encounter Care Teams Power Electronics Research Engineer Relationship Specialty Start Date End Date Rene Salinas [facility] [address] [place] [address] PCP - General Family Medicine 11/08/14 documented as of this encounter
== END 2024-11-14 23:59 | disposition home or self-care (01) ==
LOC: LAB.DROPOF 11-16 10:33
PROVIDERS: PCP Nurse Practitioner; Visit Provider Nurse Practitioner
DX: E11.9 Type 2 diabetes mellitus without complications (principal)
CPT/HCPCS: 80053; 80061; 83036

== ENCOUNTER 2025-03-22 08:48 | Outpatient (CLI) | payer BC, SELFPAY ==
[2025-03-22 19:34] LABS: Alanine Aminotransferase 55 U/L (12-78); Albumin Level 3.5 g/dl (3.5-5.0); Albumin/Globulin Ratio 0.8 (1.1-1.8); Aspartate Amino Transferase 54 U/L (17-59); Blood Urea Nitrogen 24 mg/dl (9-20); Calcium 9.3 mg/dl (8.4-10.2); Carbon Dioxide 24 mmol/L (22.0-30.0); Chloride 104 mmol/L (98-107); Creatinine,Serum 1.20 mg/dl (0.66-1.25); Estimated Glomerular Filt Rate 62 ml/min (>60); GFR (African American) 75 ML/MIN (>60); Globulin 4.4 g/dL (1.3-3.2); Glucose 114 mg/dl (74-100); Sodium 134 mmol/L (136-145); Total Protein,Serum 7.9 g/dl (6.3-8.2)
[2025-03-22 19:35] LABS: Alkaline Phosphatase 93 U/L (38-126); Anion Gap 10.3 mEq/L (5-15); Bilirubin,Total 1.2 mg/dl (0.2-1.3); Potassium 4.3 mmoL/L (3.5-5.1)
[2025-03-22 20:23] LABS: Hemoglobin A1C 5.6 % (4.0-6.0)
--- OUTSIDE RECORDS SUMMARY | 2025-03-23 13:31 | XMS_ITS | Clinical Summary ---
Author Organization Healthcare Address [address] [place] [address] Care Team Providers Care Application Support Intern Name Role Phone Mya Yusuf HANNAH Unavailable [phone] Maximino Salinas MD Primary Care Provider [phone] Allergies No known active allergies Medications cholecalciferol [...] cirrhosis of liver 01/15/2024 Liver lesion 01/15/2024 Alcohol use disorder in remission 01/15/2024 Resolved Problems Problem Noted Date Diagnosed Date Resolved Date care home current use of diuretic 01/15/2024 02/12/2025 Hepatic encephalopathy 01/15/202401/14 Immunizations Immunization Administration Dates Next Due HepB-CpG 04/15/2024,01/15/2024 Family History Medical History Relation Name Comments Diabetes Father Heart disease Father Hypertension, benign Father Lung disease Mother Cirrhosis Sister hepatic steatosis Sister Relation Name Status Comments Father Mother Sister Social History Tobacco Use Types Packs/Day Years Used Date Smoking Tobacco: Every Day Cigarettes 1.5 38.8 Started: 1986 Smokeless Tobacco: Never Tobacco Cessation:Ready [...] Date Last Done Comments [facility]-HIV Screening 1966 [facility]-/Child/Adol SDOH Screenings 1966 [facility]- SDOH Screenings 1984 [facility]-Adult SDOH Screenings 1984 [facility]-DTaP,Tdap,and Td Vaccines (1 - Tdap) 1985 CT Colonography 10/06/2011 Colonoscopy 10/06/2011 FIT-DNA 10/06/2011 FIT 10/06/2011 FOBT 10/06/2011 Sigmoidoscopy 10/06/2011 [facility]-Colorectal Cancer Screening 10/06/2011 [facility]-Pneumococcal Vaccine: 50+ Years (2 of 2 - PCV) 04/19/2015 04/19/2014 Lung Cancer Screening Shared Decision Making 2016 [facility]-Zoster Vaccines (1 of 2) 2016 [id number] Vaccine (1 - season) 2025 [facility]-Influenza Vaccine (#1) 2025 04/19/2014 [facility]-Depression Screening 04/15/2025 04/15/2024, 03/26 [...] Antibody Negative Negative 11/17/2023 7:54 AM EDT [facility] Blood Venous blood specimen / Unknown Venipuncture / Unknown 11/17/2023 6:29 AM EDT 11/17/2023 7:11 AM EDT us Jadon Caballero MD LAB BLOOD ORDERABLES Final Resul t [facility] [address] [place] [address] from Last 3 Months or Most Recently Relevant to Health Maintenance Insurance ANTHEM ANTHEM Care Teams Application Support Intern Relationship Specialty Start Date End Date Maximino Salinas MD [address] [place], [place] [address] PCP - General 10/29/23 Mya Yusuf APRN [address] [place] [address] Referring Physician Gastroenterology 10/23/23
--- OUTSIDE RECORDS SUMMARY | 2025-03-23 13:31 | XMS_ITS | Encounter Summary ---
Author Organization [facility] Address [address] [place] [address] Care Team Providers Care Wholesale Manager Name Role Phone Mya Yusuf APRN Unavailable [phone] Maximino Salinas MD Primary Care Provider [phone] Encounter Details Date Type Department Care Team ([facility] st Contact Info) Description 10/13/2023 Orders Only External Location [address] [place] [address] Provider, External Social History Tobacco Use Types [...] on filedocumented in this encounter Care Teams Wholesale Manager Relationship Specialty Start Date End Date aMximino Salinas MD [address] [place], [place] [address] PCP - General 10/29/23 Mya Yusuf APRN [address] [place] [address] Referring Physician Gastroenterology 10/23/23 documented as of this encounter
--- OUTSIDE RECORDS SUMMARY | 2025-03-23 13:31 | XMS_ITS | Encounter Summary ---
Author Organization Healthcare Address [address] [place] [address] Care Team Providers Care Silk Screen Printer Helper Name Role Phone Mya Yusuf APRN Unavailable Maximino Salinas MD Primary Care Provider [phone] Encounter Details Date Type Department Care Team ([facility] st Contact Info) Description 10/21/2022 Orders Only External Location [address] [place] [address] Provider, External Social History Tobacco Use Types [...] on filedocumented in this encounter Care Teams Silk Screen Printer Helper Relationship Specialty Start Date End Date Maximino Salinas MD [address] [place], [place] [address] PCP - General 10/29/23 Mya Yusuf APRN [address] [facility] [address] [place] [address] Referring Physician Gastroenterology 10/23/23 documented as of this encounter
--- OUTSIDE RECORDS SUMMARY | 2025-03-23 13:31 | XMS_ITS | Encounter Summary ---
Author Organization Healthcare Address [address] [place] [address] Care Team Providers Care Loan Closer Name Role Phone Mya Yusuf APRN Unavailable [phone] Maximino Salinas MD Primary Care Provider [phone] Encounter Details Date Type Department Care Team ([facility] st Contact Info) Description 07/10/2023 Orders Only External Location [address] [place] [address] Provider, External Social History Tobacco Use Types [...] on filedocumented in this encounter Care Teams Loan Closer Relationship Specialty Start Date End Date Maximino Salinas MD [address] [place], [place] [address] PCP - General 10/29/23 Mya Yusuf APRN [address] [place] [address] Referring Physician Gastroenterology 10/23/23 documented as of this encounter
--- OUTSIDE RECORDS SUMMARY | 2025-03-23 13:31 | XMS_ITS | Encounter Summary ---
Author Organization Healthcare Address [address] [place] [address] Care Team Providers Care Gate Operator Name Role Phone Mya Yusuf APRN Unavailable Maximino Salinas MD Primary Care Provider [phone]- [phone] Encounter Details Date Type Department Care Team ([facility] st Contact Info) Description 06/10/2023 Orders Only External Location [address] [place] [address] Provider, External Social History Tobacco Use Types [...] on filedocumented in this encounter Care Teams Gate Operator Relationship Specialty Start Date End Date Maximino Salinas MD [address] [place] [address] PCP - General 10/29/23 Mya Yusuf APRN [address] [facility] [address] [place] [address] Referring Physician Gastroenterology 10/23/23 documented as of this encounter
--- OUTSIDE RECORDS SUMMARY | 2025-03-23 13:31 | XMS_ITS | Clinical Summary ---
Author Organization [facility] Address [address] [place] [address] Phone Care Team Providers Care Relocation Commissioner Name Role Phone User, Super Unavailable Conditions or Problems Problem Name Problem Code Onset Date Status Entry Date Provider Comment Standard Description Annotate LUMBAR RADICULOPATHY 545347446 (SNOMED CT) Active Ashley Emery MA Lumbar radiculopathy LOW BACK PAIN (LBP) 638229967 (SNOMED CT) Active Ashley Emery MA Low back pain Medications Medication Instructions Start Date Stop Date Generic Name [facility] Provider REPATHA 140 MG/ML SOSY evolocumab [id number] Ashley Emery MA EZETIMIBE 10 MG TABS ezetimibe 766266010 09 Ashley Emery MA METHYLPREDNISOLONE 4 MG TBPK methylprednisolone 60005930726 Erasto Emery MA FUROSEMIDE 20 MG TABS furosemide 73237650857 Ashley Emery MA LISINOPRIL-HYDROCHLO ROTHIAZIDE 20-25 MG TABS lisinopril-hydro chl orothiazide 41933988006 Ashley Emery MA METHOCARBAMOL 750 MG TABS methocarbamol 15615265586 Ashley Emery MA CYCLOBENZAPRINE HCL 10 MG TABS cyclobenzaprine 87932683950 Ashley Emery MA SPIRONOLACTONE 50 MG TABS spironolactone 82387206505 Ashley Emery MA SILDENAFIL CITRATE 100 MG TABS sildenafil 70463946061 Ashley Emery MA HYDROCODONE-ACETAMIN OPHEN 5-325 MG TABS hydrocodone- acetami nophen 65793756056 Ashley Emery MA LIDOCAINE PAIN RELIEF MAX ST 4 % PTCH lidocaine 89830769530 Ashley Rupert MA Medications Administered No information [...]
--- OUTSIDE RECORDS SUMMARY | 2025-03-23 13:32 | XMS_ITS | Clinical Summary ---
Author Organization [facility] Address [address] [place] [address] Care Team Providers Care Chief Accountant Name Role Phone Faisal Dickinson MD Unavailable [phone] Allergies No known active allergies Medications lisinopriL [...] Plan of Treatment Not on file Insurance [facility] Care Teams Chief Accountant Relationship Specialty Start Date End Date Faisal Dickinson MD Orthopedic Surgery 05/06/22
== END 2025-03-22 23:59 | disposition home or self-care (01) ==
LOC: LAB.DROPOF 03-23 13:29
PROVIDERS: PCP Nurse Practitioner; Visit Provider Nurse Practitioner
DX: E11.9 Type 2 diabetes mellitus without complications (principal)
CPT/HCPCS: 80053; 83036